=== PATIENT | male | born 1955 | race Caucasian/White ===

== ENCOUNTER → 2017-05-08 | Outpatient (CLI) | payer OTHER ==
[~2017-05-08] MED LIST: ACET-1047 PO; ADVIN50/60 INH; ASCO10003 PO; ASPI81TA28 PO; B-CO-25 PO; CHOL2000 PO; CLB200 PO; CLC100 PO; FLUT1AER5; GLUC1TAB94 PO; KRIL1000 PEG; LISI-725 PO; LVNIS30 SQ; METF-384 PO; METO25TA3 PO; MONT1TAB3 PO; MULT-506 PO; OXYSR10 PO; PANT40TA PO; PRAV20TA PO; RXC5 PO; SITA50TA3 PO; TAMS0.4C38 PO; ULT50X PO; VNTHFA/IN INH
--- NOTE | 2017-05-08 09:16 | DIAGNOSTIC IMAGING REPORT ---
LEG LENGTH STUDY (WHOLE LEG) CLINICAL HISTORY: 61 years-old Male presenting with RIGHT LEG PAIN. TECHNIQUE: Bilateral the use of the lower extremities were performed as part of a leg length discrepancy study. COMPARISON: None. FINDINGS: Superior right femoral head to medial condyle 47.2 cm. Right medial tibial plateau to ankle mortise 35.2 cm. Total right leg length 82.4 cm. Superior left femoral head to medial femoral condyle 47.9 cm. Left medial tibial plateau to ankle mortise 34.5 cm. Total left leg length 82.4 cm. No evidence of fracture or malalignment. Bilateral symmetric joint space loss in the medial compartments with mild osteophytosis both medially and laterally. Atherosclerosis. IMPRESSION: 1. No evidence of leg length discrepancy. 2. Bilateral degenerative changes at the knee joints, most severe in the medial compartments where there is joint space loss. Electronically signed by: Holger Perez M.D. 05/08/2017 9:15 AM Dictated Date/Time: 05/08/2017 9:12 AM
== END | disposition home or self-care (01) ==
LOC: C.RDSM 14:56
PROVIDERS: ATTEND Physician Assistant
DX: R52 Pain, unspecified (principal)

== ENCOUNTER 2017-06-06 04:59 | Inpatient (IN) | payer OTHER ==
[2017-05-08 10:45] VITALS: BMI 41.0
--- NOTE | 2017-05-08 11:37 | PAT Medication Instructions ---
Service Date May 08, 2017. Current Home Medication List Albuterol Hfa (Ventolin Hfa), 2-4 PUFFS INH QID PRN for Wheezing Ascorbic Acid (Vitamin C), 100 MG PO QAM Aspirin (Aspirin Ec), 81 MG PO QPM B-Complex W/ Folic Acid (Super B Complex Maxi), 1 TAB PO QAM Cholecalciferol (Vitamin D3), 1 CAP PO QAM Fluticasone Prop/Salmeterol (Advair Diskus 500/50 60 Dose), 1 PUFFS INH BID Fluticasone Propionate (Inhala (Flovent Diskus), 1 INHA NA HS Kzmsthzbrkz-Rhspynwcxtd-Nqncje ([employer] Health Ad), 1 TAB PO QAM Krill Oil (Krill Oil), 1 CAN PEG QAM Lisinopril (Zestril), 20 MG PO QPM Metformin Hcl (Glucophage), 1,000 MG PO BID Metoprolol Succinate (Toprol Xl), 1 TAB PO QAM Montelukast Sodium (Singulair), 1 TAB PO QPM Multivitamin (Multivitamin), 1 TAB PO QAM Pantoprazole (Protonix), 40 MG PO QAM Pravastatin (Pravachol ), 40 MG PO HS Sitagliptin (Januvia), 50 MG PO QAM Tamsulosin Hcl (Flomax), 1 CAP PO QPM Medication Instructions For Your Scheduled Surgery - Hold the following medications 2 weeks prior to surgery: Mthmxngqalb-Woyfixouvwe-Kfcebk (Wevebob Ad), 1 TAB PO QAM Krill Oil (Krill Oil), 1 CAN PEG QAM - Hold the following medications 48 hours prior to surgery: Metformin Hcl (Glucophage), 1,000 MG PO BID - Hold the following medications the morning of surgery: Sitagliptin (Januvia), 50 MG PO QAM Multivitamin (Multivitamin), 1 TAB PO QAM B-Complex W/ Folic Acid (Super B Complex Maxi), 1 TAB PO QAM Cholecalciferol (Vitamin D3), 1 CAP PO QAM Ascorbic Acid (Vitamin C), 100 MG PO QAM - Take the following medications the morning of surgery with a sip of water: Pantoprazole (Protonix), 40 MG PO QAM Metoprolol Succinate (Toprol Xl), 1 TAB PO QAM Fluticasone Prop/Salmeterol (Advair Diskus 500/50 60 Dose), 1 PUFFS INH BID Albuterol Hfa (Ventolin Hfa), 2-4 PUFFS INH QID PRN for Wheezing (bring with you to hospital morning of surger; if needed) - Hold the following medications as scheduled the night before surgery: Lisinopril (Zestril), 20 MG PO QPM - Take the following medications as scheduled the night before surgery: Tamsulosin Hcl (Flomax), 1 CAP PO QPM Pravastatin (Pravachol ), 40 MG PO HS Montelukast Sodium (Singulair), 1 TAB PO QPM Fluticasone Prop/Salmeterol (Advair Diskus 500/50 60 Dose), 1 PUFFS INH BID Fluticasone Propionate (Inhala (Flovent Diskus), 1 INHA NA HS Albuterol Hfa (Ventolin Hfa), 2-4 PUFFS INH QID PRN for Wheezing (if needed) Aspirin (Aspirin Ec), 81 MG PO QPM (okay to continue per surgeon) If you have any questions please call us at [phone] or [phone] or [phone]
--- NOTE | 2017-05-08 12:35 | DIAGNOSTIC IMAGING REPORT ---
CHEST 2 VIEWS ROUTINE HISTORY: Preop. COMPARISON: None. FINDINGS: The lungs are clear. Cardiac silhouette is normal in size. No pleural effusions. No pneumothorax. IMPRESSION: No acute process. Electronically signed by: Andrew Montiel M.D. 05/08/2017 12:34 PM Dictated Date/Time: 05/08/2017 12:30 PM
--- NOTE | 2017-05-08 12:38 | DIAGNOSTIC IMAGING REPORT ---
CERVICAL SPINE 2 OR 3 VIEWS CLINICAL HISTORY: PREOP, RHEUMATOID ARTHRITIS COMPARISON STUDY: None. FINDINGS: Lateral, flexion, and extension views of the cervical spine were performed. The cervical spine is visualized from C1 through the superior endplate of T1. There is straightening of the cervical spine. Alignment remains intact through both flexion and extension. No fractures. Prevertebral soft tissues and the C1-C2 interval are within normal limits. Mild to moderate disc space narrowing at C5-C6 and C6-C7 with endplate osteophytes. IMPRESSION: The alignment remains intact throughout flexion and extension. The C1-C2 interval is within normal limits. Electronically signed by: Andrew Montiel M.D. 05/08/2017 12:36 PM Dictated Date/Time: 05/08/2017 12:35 PM
[2017-05-08 12:39] LABS: BASO % 0.1 %; BASO ABS # 0.01 K/uL (0-0.2); COMPLETE YES; EOS % 3.9 %; HEMATOCRIT 39.7 % (42-52); IG% 0.4 %; LYMPH % 18.3 %; MEAN CELL VOLUME 89.2 fL (80-100); MEAN CORPUSCULAR HEMOGLOBIN 31.5 pg (25-34); MEAN CORPUSCULAR HGB CONC 35.3 g/dl (32-36); MEAN PLATELET VOLUME 10.5 fL (7.4-10.4); MONO % 5.5 %; NEUT % 71.8 %; PLATELET COUNT 224 K/uL (130-400); RED BLOOD COUNT 4.45 M/uL (4.7-6.1); WHITE BLOOD COUNT 7.11 K/uL (4.8-10.8)
[2017-05-08 12:49] LABS: BUN/CREATININE RATIO 9.8 (10-20); CALCIUM 9.2 mg/dl (8.5-10.1); CREATININE 0.89 mg/dl (0.60-1.40); POTASSIUM 4.3 mmol/L (3.5-5.1); PROTHROMBIN TIME (PATIENT) 10.2 SECONDS (9.0-12.0)
--- NOTE | 2017-05-30 11:46 | HISTORY & PHYSICAL EXAMINATION ---
DATE OF ADMISSION: 06/06/2017 ATTENDING PHYSICIAN: Dr. Holger Jasso. CHIEF COMPLAINT: Bilateral knee pain, right side greater than left times many years. HISTORY OF PRESENT ILLNESS: The patient is a pleasant 61-year-old male who has been treated in our office for bilateral knee pain. He states it has been ongoing for many years. He has progressively worsened over the last couple of months. His right knee is worse than his left knee. Most of his pain on the right knee is on the inside, part of the knee radiates down his leg. His pain is increased with activity and weightbearing. He has decreased activities of daily living due to pain in his right knee. He has pain with range of motion and limited motion due to pain. He has occasionally had effusions in his knee that needed to be aspirated. Aggravating activities include walking, going up and down steps. He states he is unable to be as active as he would like to be, he is unable to do things he likes to do like walk in the [place] or home. He has pain at rest. Prior treatments include nonsteroidal anti-inflammatory drugs, physical therapy, corticosteroid injections, viscous supplementation and joint aspirations. Due to his progressively worsening symptoms and the inability to do things that he would like to do he has elected to proceed with a right total knee arthroplasty. PAST MEDICAL HISTORY: 1. Gastroesophageal reflux disease. 2. Hyperlipidemia. 3. Type 2 diabetes mellitus. 4. Hypertension. 5. Obesity. 6. Osteoarthritis. 7. Coronary atherosclerosis. 8. Sleep apnea with use of a CPAP machine. 9. History of prostate cancer. CURRENT MEDICATIONS: 1. Albuterol 2 puffs inhaled q.i.d. as needed for wheezing. 2. Aspirin 81 mg daily. 3. Vitamin D3 2000 international units daily. 4. Advair Diskus 500 mcg per 50 mcg 1 puff p.o. b.i.d. daily. 5. Fluticasone 50 mcg per inhaled nasal spray 1 spray each nostril daily. 6. Zestril 20 mg 1 tab p.o. daily. 7. Metformin 1000 mg 1 tab p.o. b.i.d. 8. Metoprolol 25 mg 1 tab p.o. daily. 9. Singulair 10 mg 1 tab p.o. q.p.m. 10. Multivitamin daily. 11. Super B complex multivitamin daily. 12. Krill oil 500 mg p.o. daily. 13. Pantoprazole 40 mg 1 tab p.o. daily. 14. Pravachol 40 mg 1 tab p.o. at bedtime. 15. Januvia 50 mg 1 tab p.o. daily. 16. Tamsulosin 0.4 mg p.o. daily. 17. Vitamin C 1000 mg daily. 18. Move Free joint supplementation daily. ALLERGIES: HE IS ALLERGIC TO LIPITOR, AND CRESTOR WHICH BOTH CAUSE LEG CRAMPS. FAMILY HISTORY: His brother and father have a history of cancer. His mother has history of heart disease as well as type 2 diabetes. SOCIAL HISTORY: He denies any tobacco use, states that he did smoke, quit at age 28. He states he does drink 2 alcoholic drinks per night. Denies any diarrhea or drug use. Does not walk with any type of assistive device. Lives with his who is a nurse. He is retired from the [employer]. REVIEW OF SYSTEMS: Denies any history of blood transfusions, skin conditions, blood clots, embolisms or phlebitis. Denies any bleeding or clotting disorders. Denies any headaches, migraines, seizures, syncopal episodes, lightheadedness or dizziness. Denies any blurry vision or hearing loss. Denies any chest pain, heart palpitations. Denies any shortness of breath recently but other than his normal shortness of breath and allergy and asthmatic symptoms. Denies any history of nausea, vomiting. No ulcers. Occasionally, gets some heartburn, although the pantoprazole that he takes keeps that under control. Denies any diarrhea, constipation, abdominal pain. Denies any issues with retention or prostatitis. He has an elevated PSA. Denies any foul smelling urine or frequency with urination. PHYSICAL EXAMINATION: GENERAL: He is alert and oriented x3. His appearance is well-dressed, well-nourished. Does not use any assistive device for ambulation. He does ambulate with an antalgic gait. VITAL SIGNS: Height is 5 feet 8 inches, weight is 258 pounds, and BMI is 39.2. HEAD, EYES, EARS, NOSE, AND THROAT: Head is atraumatic, normocephalic. EARS: Hearing is grossly normal. TMs are clear with normal light reflex. Nontender to palpation. EYES: Extraocular movements intact. Pupils are round and reactive to light. Sclerae are normal. NOSE: Nares are patent bilaterally. Normal turbinates. No drainage. THROAT: Oropharynx is clear. Mucous membranes are moist. Good dentition. Uvula midline. NECK: Supple, no lymphadenopathy, full range of motion, no carotid bruits appreciated. LUNGS: Clear to auscultation bilaterally. No adventitious sounds. No accessory muscle use. HEART: Regular rate and rhythm, normal S1, S2. No murmurs, rubs or gallops appreciated. ABDOMEN: Obese, soft, nontender, nondistended. Bowel sounds heard in all 4 quadrants. Exam of bilateral lower extremities, he does not have any distal edema in either extremity. His peripheral pulses are 2+ and equal bilaterally. Does have a positive effusion in his right knee. Range of motion is 0/5/115. Strength is 5/5. He has medial joint line tenderness of his right knee with palpation. He does have a varus alignment. His ligamentous exam is normal and intact. His range of motion on the left is 0/5/115. RADIOLOGY IMAGES: X-rays of his right knee show tricompartmental osteoarthritis of the right knee with osteophyte formation as well as subchondral sclerosis. LABORATORY DATA: He had labs done on 03/29/2017, white blood cell was 7.19, hemoglobin 14.2, hematocrit 40.7, platelet count 242. BUN 12.0, creatinine 0.87, hemoglobin A1c was 6.6. EKG done on 01/20/2017 showed normal sinus rhythm with a rate of 64. Chest x-ray from 05/08/2017 shows no acute process. Lungs are clear. Cardiac silhouette is normal in size. No pleural effusions. No pneumothorax. IMPRESSION: End-Stage degenerative joint disease, right knee PLAN: The patient will be admitted on 06/06/2017 to the [facility] to undergo an elective right total knee arthroplasty with Dr. Jasso. Risks of surgery were explained to the patient and include but are not limited to infection, pain, bleeding, scarring, nerve and blood vessel damage, wound problems, weakness, stiffness, incomplete relief of symptoms, hardware failure, loosening, wear, fracture, blood clots, embolisms, heart attack, stroke and . All questions were answered, informed consent was obtained by Dr. Jasso. Post operative course discussed , he will be admitted for 2-3 days after surgery. We will use Lovenox postoperatively 30 mg b.i.d. x4 weeks for DVT prophylaxis. He will have presurgical clearance by his family physician, Dr. Satya Daniel. He will be managed medically postoperatively by the hospitalist service for postop medical management. His discharge plans are home with home health. He is also scheduled for outpatient physical therapy closer to home. He has also had clearance from his urologist to proceed with the total knee replacement. He is scheduled for repeat PSA the end of June and no plans for radiation will be made until that PSA is completed. All questions were answered today. He knows to call with any further problems or questions. DEON
[~2017-06-06] VITALS: Ht 172.7 cm; Wt 124.2 kg
[2017-06-06] VITALS (9 sets, daily range): BP systolic 118–179; BP diastolic 66–93; PULSE 64–91; TEMP 36.6–37.1; O2SAT 93–99; Ht 172.7 cm; Wt 124.2 kg
[~2017-06-06 04:59] MED LIST changes: -ACET-1047 PO; -CLB200 PO; -CLC100 PO; -LVNIS30 SQ; -OXYSR10 PO; -RXC5 PO; -ULT50X PO
[2017-06-06] MEDS ORDERED: TRAMADOL HCL 50 MG TAB PO SCH (06:00)
[2017-06-06] MEDS ORDERED: CEFAZOLIN 3000 MG/65 ML D5W 65 ML IV SCH (06:00)
[2017-06-06] MEDS ORDERED: LACTATED RINGER'S 1000ML IV SCH (06:00)
[2017-06-06] MEDS ORDERED: GABAPENTIN 300 MG CAP PO SCH (06:00)
[2017-06-06] MEDS ORDERED: OXYCODONE HCL 10 MG TABCR (OXYCONTIN) PO SCH (06:00)
[2017-06-06] MEDS ORDERED: LACTATED RINGER'S 1000ML 1,000 ML IV SCH ×2 (06:00)
[2017-06-06] MEDS ORDERED: FAMOTIDINE 20 MG TAB PO SCH (06:00)
[2017-06-06] MEDS ORDERED: CLONIDINE HCL 0.1 MG/24 HR TRANSDERM SYS TD SCH (06:00)
[2017-06-06] MEDS ORDERED: CeleBREX 200 MG CAP PO SCH (06:00)
[2017-06-06] MEDS ORDERED: ROPIVACAINE 5MG/ML 30 ML 150 MG, BUPIVACAINE/EPINEPHR 0.5% MPF 30 ML, KETOROLAC TROMETH... INFIL SCH ×13 (06:00)
[2017-06-06] MEDS ORDERED: ACETAMINOPHEN 500 MG TAB PO SCH (06:00)
[2017-06-06] MEDS ORDERED: METOCLOPRAMIDE HCL 10 MG TAB PO SCH (06:00)
[2017-06-06] MEDS: TRANEXAMIC ACID INJ 1,000 MG in SODIUM CHLORIDE 0.9% 100ML 100 ML IV SCH ×2 (06:11→10:40)
[2017-06-06] MEDS ORDERED: FENTANYL CITRATE INJ 50 MCG/1 ML 2 ML VIAL IV PRN (06:15)
[2017-06-06] MEDS ORDERED: EpHEDrine SULFATE INJ 50 MG/ML AMP IV PRN (06:15)
[2017-06-06] MEDS ORDERED: ATROPINE SULFATE 0.1 MG/ML 5ML SYR IV PRN (06:15)
[2017-06-06] MEDS ORDERED: HYDROmorphone INJ 1 MG/ML SYR IV PRN (06:15)
[2017-06-06] MEDS ORDERED: ONDANSETRON INJ 2 MG/ML 2 ML VIAL IV PRN ×2 (06:15→10:00)
[2017-06-06] MEDS ORDERED: BUPIVACAINE 0.5 % 5 MG/1 ML PF 10ML VIAL ONE (06:27)
[2017-06-06] MEDS ORDERED: BUPIVACAINE 0.25% 30 ML VIAL ONE (06:27)
[2017-06-06] MEDS ORDERED: PROPOFOL IV EMULSION 10 MG/ML 20 ML VIAL IV ONE (06:35)
[2017-06-06] MEDS ORDERED: MIDAZOLAM HCL 1 MG/ML 2ML VIAL ONE (06:35)
[2017-06-06] MEDS ORDERED: FENTANYL CITRATE INJ 50 MCG/1 ML 2 ML VIAL ONE ×2 (06:35→08:56)
--- NOTE | 2017-06-06 06:42 | History & Physical Bridge Note ---
H&P Re-Evaluation Bridge Note: I have examined the patient, reviewed the History & Physical and in the interval since the performance of the History & Physical I have noted the following changes of clinical significance: No changes noted
[2017-06-06] MEDS ORDERED: BACITRACIN 50000 UNIT VIAL ONE (06:43)
[2017-06-06] MEDS ORDERED: SODIUM CHLORIDE 0.9% PF 50 ML VIAL ONE (06:43)
[2017-06-06] MEDS ORDERED: BUPIVACAINE LIPOSOME 1/3% 266 MG/20 ML VIAL INFIL ONE (06:43)
[2017-06-06] MEDS ORDERED: ORTHO JOINT ANESTHETIC ONE (06:43)
[2017-06-06] MEDS ORDERED: ONDANSETRON INJ 2 MG/ML 2 ML VIAL ONE (09:27)
[2017-06-06] MEDS ORDERED: POVIDONE-IODINE OP SOLN 30 ML BTL TOP ONE (09:37)
[2017-06-06] MEDS ORDERED: ACETAMINOPHEN 325 MG TAB PO PRN (10:00)
[2017-06-06] MEDS ORDERED: ALBUTEROL HFA 8 GM INHALER INH PRN (10:00)
[2017-06-06] MEDS ORDERED: METOCLOPRAMIDE HCL INJ 5 MG/ML 2 ML VIAL IV PRN (10:00)
[2017-06-06] MEDS ORDERED: BISACODYL 10 MG SUPP PR PRN (10:00)
[2017-06-06] MEDS ORDERED: DiphenhydrAMINE HCL 50 MG/ML VIAL IV PRN (10:00)
[2017-06-06] MEDS ORDERED: MAGNESIUM HYDROXIDE SUSP 30 ML UDC PO PRN (10:00)
[2017-06-06] MEDS ORDERED: SOD PHOSPHATE/SOD BIPHOSPHATE ENEMA 132 ML BTL PR PRN (10:00)
[2017-06-06] MEDS ORDERED: KETOROLAC TROMETHAMINE 30 MG/ML VIAL IV. PRN (10:00)
[2017-06-06] MEDS ORDERED: MoRPHine SULFATE 2 MG/ML CARP IV PRN (10:00)
--- NOTE | 2017-06-06 10:03 | [facility] Operative Report ---
Operative Report Operative Date Jun 06, 2017. Pre-Operative Diagnosis Right Knee, Degenerative Joint Disease Post-Operative Diagnosis Same as preoperative Procedure(s) Performed Right Total Knee Arthroplasty Surgeon Dr. Holger Jasso Director Oracle Database Surgeon(s) Michelle Boyd PA-C Estimated Blood Loss 25ML Findings Medial compartment osteoarthritis Specimens A.) Right Knee Bone and Tissue Drains none Anesthesia spinal with peripheral nerve block and intravenous sedation Complication(s) None Disposition Recovery Room / PACU Indications Patient's a 61-year-old male with bilateral severe medial compartment osteoarthritis. His pain has been refractory to nonsurgical methods of management. He has diabetes which is well managed. He also has prostate cancer in addition to other medical problems. He is a moderately overweight. After discussion of treatment options risks and benefits elected to proceed with operative intervention. Description of Procedure Consent was obtained. The patient identified as Manda. He identified the operative site as the right knee. I marked with my initials. Preoperative surgical timeout was performed. Appropriate dose of IV antibiotics was given. He was taken to the operating room and positioned supine on the operating room table. Diaz was inserted. A bump was placed under the right hip and right calf. A tourniquet was applied to the right thigh and the limb was prepped and draped in the usual sterile fashion. Exam under anesthesia revealed range of motion 0/5/120. He had 1+ MCL laxity with varus alignment there was a positive effusion in the knee. EVT prophylaxis intraoperatively with foot pumps postoperatively with Lovenox. The limb was exsanguinated with the Esmarch tourniquet inflated to 50 mmHg. A midline incision was made about 20 cm in length. A medial parapatellar arthrotomy was performed. There were grade 2 changes diffusely about the patella with osteophytes which were removed. Soft tissue around the patella was debrided. The retropatellar fat pad and cruciate ligaments were excised. An extensile medial release was performed along didn't back to the level of the semimembranosus tendon which was also released. The medial meniscus was deficient there were grade 4 changes throughout the medial compartment were bone spurs throughout all compartments of the knee but the trochlea and lateral compartment and lateral meniscus were nearly normal in appearance. There were no loose bodies. The synovial reflection in the lateral gutter was released. Soft tissue on the anterior aspect of the distal femur was also removed. The knee was subluxated and a airplane pilot commercial hole was drilled just in front of the lateral tibial spine. I could not advance the intramedullary lara completely down the tibia but guided I believed was through the majority of the diaphysis. The alignment guide was affixed to the lara and set to take 10 off the high side corresponding to off of the low side. The guide was pinned in place. The extra medullary alignment lara was utilized and found to have appropriate slope. The varus valgus orientation was bisecting the ankle joint and in line with the second ray. The patellar tendon and soft tissues were protected and the cut was made. The tibia was sized to a 4. Attention was turned to the femur airplane pilot commercial hole was drilled and distal femur followed by insertion of the intramedullary lara and the alignment guide set at 6 valgus right knee 13 mm resection. This was pinned in place and verified and the cut was then made. The extension gap was a symmetric but tight 10 mm. Whitesides line and the transverse epicondylar axis were marked out and the sizing block was applied and sized to a 4. The appropriate external rotation drill holes were made which nearly matched the epicondylar axis. The size 4 anterior cutting block was applied and collateral ligaments were protected. The cuts were made. These were noted but extraneous osteophytes in the back of the knee were removed with osteotome and curette. The flexion gap was symmetric 10. Box cutting guide was applied and lateralized and cut. The femoral trial was applied. The tibia was prepared by aligning the jig drilling and punching the keel. A 10 mm spacer was inserted. An Medial bone was marked and resected. The component was shifted laterally. The knee had full extension and was stable in full extension. There is trace MCL laxity and mid position 1+ LCL laxity and the knee was stable in 90 of flexion. Attention was turned the patella which measured 25 mm in thickness. A 38 mm size was selected and the guide was set to preserve 16 mm. The patellar guide was utilized and the cut was made. A 38 patella palpable was utilized oriented and the lug holes were drilled. The patella tracked fine with the no hands technique. The residual patellar thickness was 15. Positive patellar thickness at the end of the case was 24 mm. The patella was distal eyes and medialized. After confirming tracking and stability the components removed the plugs were placed in the canal the joint mix was injected into the back of the knee taken care to protect the neurovascular structures. Pulse lavage was performed on all bony surfaces and soft tissue. The components were then cemented in place using 2 bags of simplex P cement mixed using third-generation cement technique applied well in a doughy state. Smear was applied on the posterior condyles of the femur. Components cemented in place femur tibia and patella and held in full extension with a patellar clamp the cemented hardened. Tourniquet was let and then let down after 95 minutes of inflation there is no significant bleeding. Extraneous cement was removed. The back of the knee was inspected for cement. Cement in the back the knee was thoroughly removed. Wound was again performed and a 10 mm insert was appropriate. Betadine lavage was performed. The remainder of the orthotic joint mix was injected throughout the joint capsule skin and subcutaneous tissues. The circumference of the tibial tray was inspected for cement. There is no significant bleeding noted. Irrigation with pulse lavage and the Betadine lavage was performed. The final component was inserted with full extension showing no varus or valgus laxity. The knee was not in flexion. [place] assisted flexion with the extensor mechanism closed with 120. Liftoff pullout was negative. There is 1 + LCL laxity and the position and trace MCL laxity in mid position. There is no laxity to varus or valgus stress at 90 flexion. The extensor mechanism was closed with interrupted #2 FiberWire above the equator of the patella and running and interrupted #1 Vicryl below. The skin was closed in layers with 0 and 2-0 Vicryl along with cristina and a Silverlon dressing. The leg was cleaned with wet and dry sponges a soft sterile dressing was applied along the full length João wrap. Patient would from anesthesia without difficulty taken recovery room in stable condition. Resected bone was sent for specimen. There were no complications. Counts are correct in the case. Blood loss was approximately 25 mL. The patient received his second dose of trans-and examined casted at the conclusion of the operation. He was taken recovery room in stable condition. At the conclusion operation I spoke to the patient's family and informed them of my findings. The components inserted were the [employer] PFC Sigma rotating platform total knee size 4 femur and tibia. Size 38 3 peg oval dome patella and a size 4 rotating platform 10 mm thick polyethylene insert I attest to the content of the Intraoperative Record and any orders documented therein. Any exceptions are noted below.
--- NOTE | 2017-06-06 10:08 | Anesthesiology Progress Note ---
Anesthesia Post Op Note Date & Time Jun 06, 2017 at 10:08 Vital Signs Pain Intensity: 8 Vital Signs Past 12 Hours Date Time Temp Pulse Resp B/P (MAP) Pulse Ox O2 Delivery O2 Flow Rate FiO2 06/06/17 05:32 36.7 72 20 178/66 96 Room Air Notes Mental Status: alert / awake / arousable, participated in evaluation Pt Amnestic to Procedure: Yes Nausea / Vomiting: adequately controlled Pain: adequately controlled Airway Patency, RR, SpO2: stable & adequate BP & HR: stable & adequate Hydration State: stable & adequate Neuraxial Anesthesia: was administered, sensory block is resolving Anesthetic Complications: no major complications apparent Doing well. Awake, pain controlled, moving bilateral lower extremities.
--- NOTE | 2017-06-06 10:10 | [facility] Operative Report ---
Operative Report Operative Date Jun 06, 2017. Pre-Operative Diagnosis Right Knee, Degenerative Joint Disease Post-Operative Diagnosis Same as preoperative Procedure(s) Performed Right Total Knee Arthroplasty Surgeon Dr. Holger Jasso Flat Optical Element Maker Surgeon(s) Michelle Boyd PA-C Estimated Blood Loss 25ML Findings DJD right knee Specimens A.) Right Knee Bone and Tissue Drains none Anesthesia spinal with peripheral nerve block and intravenous sedation Complication(s) None Disposition Recovery Room / PACU (stable) Indications Patient is a 61-year-old male who presented to our office with complaints of right knee pain. An ongoing for many months and has progressively worsened. It now affects him on a daily basis with activities of daily living and normal activities. He has failed conservative treatment which has consisted of wearing a brace, corticosteroid injections, viscous supplementation, rest, ice and anti-inflammatories. Due to his worsening symptoms and failure of conservative treatment, surgical intervention was recommended. Risks and complications of surgery were discussed with the patient. Agreed to proceed. Informed consent was obtained. Description of Procedure Patient was taken to the operating room and placed under spinal anesthesia. He was given a peripheral nerve block. He was given 3 g of IV Ancef for surgical prophylaxis. Timeout performed. He was prepped and draped in routine sterile fashion. I was present during the entire case, please see Dr. Jasso's operative report for further detail. Patient was awakened and transferred to the recovery room in stable condition. I attest to the content of the Intraoperative Record and any orders documented therein. Any exceptions are noted below.
--- NOTE | 2017-06-06 10:29 | DIAGNOSTIC IMAGING REPORT ---
RIGHT KNEE 1 OR 2 VIEWS ROUTINE HISTORY: 61 years-old Male right knee arthroplasty. COMPARISON: Right knee radiographs 08/11/2016 TECHNIQUE: Portable AP and lateral views of the right knee FINDINGS: There is been recent right total knee arthroplasty with patellar resurfacing. Midline skin cristina are seen anteriorly. Expected postsurgical soft tissue swelling and deep tissue air is noted. No malalignment or periprosthetic fracture. IMPRESSION: Status post right total knee arthroplasty and patellar resurfacing without complication identified. The above report was generated using voice recognition software. It may contain grammatical, syntax or spelling errors. Electronically signed by: Fortunato Reddy M.D. 06/06/2017 10:27 AM Dictated Date/Time: 06/06/2017 10:26 AM
[2017-06-06] MEDS ORDERED: PHARMACY GLYCEMIC MGMT CONSULT PRN (11:15)
[2017-06-06] MEDS ORDERED: GLUCOSE 40% GEL 15 GM TUBE PO PRN (11:45)
[2017-06-06] MEDS ORDERED: GLUCAGON FOR INJ 1 MG VIAL SQ PRN (11:45)
[2017-06-06] MEDS ORDERED: DEXTROSE 50% 50 ML SYR IV PRN (11:45)
[2017-06-06] MEDS ORDERED: GLUCOSE 10 TABS/TUBE PO PRN (11:45)
[2017-06-06] MEDS: SODIUM CHLORIDE 0.9% 1000ML 1,000 ML IV SCH ×2 (12:16→21:16)
[2017-06-06] MEDS: OXYCODONE HCL IR 5 MG TAB (IMMEDIATE RELEASE) PO PRN ×2 (13:04→17:48)
[2017-06-06] MEDS: INSULIN ASPART 100 UNITS/ML 3 ML PEN SC SCH ×3 (13:08→21:16)
--- NOTE | 2017-06-06 13:41 | Pharmacy Progress Note ---
Glycemic Control Intl Consult Date of Service Jun 06, 2017. Scope Glycemic Pharmacist consulted by MYRNA Harris on 06/06/17 for glycemic control and to write orders per [facility] inpatient glycemic control protocol. Of note, medicine has also been consulted but I have spoken with Dr. Marin and he is aware we are managing. Objective Weight (Kilograms): 124.200 Accuchecks BSG (last 24hrs): Test 06/06/17 05:30 06/06/17 10:03 06/06/17 12:01 Bedside Glucose 189 mg/dl (70-99) 210 mg/dl (70-99) 164 mg/dl (70-99) Recent Pertinent Medications Outpatient Anti-diabetic Regimen: * Januvia 50 mg daily * Metformin 1 gm BID * A1c = 6.6 % 03/29/17 (as per H&P) Risk Factors for Insulin Resistance: * Recent Surgery: POD #0 s/p R TKA * Diet: type 2 diabetes diet ordered postop Assessment & Plan ASSESSMENT: * 61 y/o male admitted for R TKA today. History of type 2 diabetes, managed on two orals as an outpatient and well controlled as per most recent A1c * Pt is maintained on oral antidiabetic agents as an outpatient * Oral agents are not recommended for inpatient use d/t drug interactions, changing PO intake, and difficulty titrating for acute hyper/hypoglycemia. ADA recommends re-initiating outpatient oral agents 1-2 days prior to discharge if/ when appropriate if they were held on admission. * Will hold oral agents for admission and utilize SQ basal bolus insulin regimen which is the recommended regimen for inpatient glycemic control. * Will initiate weight based insulin dosing for insulin lelo patient and titrate based on BSG trends. * ADA & AACE recommend a goal blood sugar range 140-180 mg/dl for the majority of critically ill & non-critically ill patients. However, more stringent targets may be selected in individual cases. PLAN FOR INPATIENT GLYCEMIC CONTROL: * Holding outpatient oral diabetes medications, can plan to resume in next day or two as long as patient meets criteria * Basal insulin with LANTUS 20 units x 1 this evening if BSG remains above 140 mg/dL (~0.15 units/kg). Further basal dosing will be dependent on BSGs. * Correctional Insulin with NOVOLOG per scale ACHS or Q6hrs while NPO * Goal Range: Low 110 mg/dL - High 140 mg/dL * Correction Factor: 25 mg/dL/unit * Nutritional / Prandial insulin per carb ratio of 1 unit per 8 grams CHO consumed DISCHARGE RECOMMENDATIONS: * A1c acceptable * Resume Januvia and metformin on discharge Thank you.
--- NOTE | 2017-06-06 13:51 | Medical Consult ---
Consultation Date of Consultation: Jun 06, 2017. Attending Physician: Holger Jasso M.D. Reason for Consultation: Medical Management History of Present Illness Mr. Hillman is a 61 y/o male with PMHx of T2DM, CAD, JOYCE on night CPAP, HTN, HLD, Asthma, GERD, and Prostate CA who is S/P R TKA by Dr. Jasso on 06/06. Currently pain is well-controlled with current management. He is maintained on Metformin and Januvia for diabetes management. He reports good control of asthma symptoms with rare exacerbations. He denies H/O DVT/PE. H/O single vessel coronary disease that is being medically managed and monitored. He denies any further cardiac history including NC or CHF. Past Medical/Surgical History 1. T2DM 2. CAD 3. JOYCE on CPAP 4. GERD 5. HLD 6. HTN 7. Prostate CA Family History Diabetes mellitus Hypertension Social History Smoking Status: Former Smoker Smokeless Tobacco Use: No Alcohol Use: socially Drug Use: none Marital Status: Housing Status: lives with significant other Occupation Status: employed Allergies Coded Allergies: Atorvastatin (Verified Adverse Reaction, Unknown, leg cramps, 05/08/17) Rosuvastatin (Verified Adverse Reaction, Unknown, leg cramps, 06/06/17) Current Inpatient Medications Current Inpatient Medications Medications (Trade) Dose Ordered Sig/Julita Route Start Time Stop Time Status Last Admin Dose Admin Lactated Ringer's 1,000 ml @ 60 mls/hr [id number] IV 06/06/17 06:00 06/06/17 22:39 Cefazolin Sodium 65 ml @ 100 mls/hr PREOP IV 06/06/17 06:00 06/06/17 18:00 06/06/17 07:05 100 MLS/HR Acetaminophen (Tylenol Tab) 1,000 mg PREOP PO 06/06/17 06:00 06/06/17 18:00 06/06/17 06:11 1,000 MG Celecoxib (CeleBREX CAP) 200 mg PREOP PO 06/06/17 06:00 06/06/17 18:00 06/06/17 06:11 200 MG Famotidine (Pepcid Tab) 20 mg PREOP PO 06/06/17 06:00 06/06/17 18:00 06/06/17 06:10 20 MG Gabapentin (Neurontin Cap) 600 mg PREOP PO 06/06/17 06:00 06/06/17 18:00 06/06/17 06:10 600 MG Metoclopramide HCl (Reglan Tab) 10 mg PREOP PO 06/06/17 06:00 06/06/17 18:00 06/06/17 06:10 10 MG Oxycodone HCl (Oxycontin Tab) 10 mg PREOP PO 06/06/17 06:00 06/06/17 18:00 06/06/17 06:11 10 MG Clonidine HCl ([id number] 0.1mg/24hr Patch) 1 patch PREOP TD 06/06/17 06:00 06/06/17 18:00 06/06/17 06:09 1 PATCH Miscellaneous (Remove Clonidine Patch) 1 ea Q72H N/A 06/08/17 06:00 06/08/17 06:01 Tranexamic Acid 1000 mg/Sodium Chloride 110 ml @ 660 mls/hr TODAY@06,0630 IV 06/06/17 06:00 06/06/17 18:00 06/06/17 06:11 660 MLS/HR Tramadol HCl (Ultram Tab) 50 mg PREOP PO 06/06/17 06:00 06/06/17 18:00 06/06/17 06:10 50 MG Lactated Ringer's 1,000 ml @ 15 mls/hr Q24H IV 06/06/17 06:00 06/07/17 05:59 06/06/17 06:09 15 MLS/HR Sodium Chloride 1,000 ml @ 100 mls/hr Q10H IV 06/06/17 12:00 06/07/17 11:59 06/06/17 12:16 100 MLS/HR Cefazolin Sodium 3000 mg/Dextrose 65 ml @ 100 mls/hr Q8H IV 06/06/17 16:00 06/07/17 00:38 Celecoxib (CeleBREX CAP) 200 mg BID PO 06/07/17 10:00 07/07/17 09:59 Oxycodone HCl (Roxicodone Immediate Rel Tab) 1 TABLET FOR PAIN RATING... Q4H PRN PO 06/06/17 10:00 06/20/17 09:59 06/06/17 13:04 10 MG Morphine Sulfate (MoRPHine SULFATE INJ) 2 mg Q2H PRN IV 06/06/17 10:00 06/20/17 09:59 Acetaminophen (Tylenol Tab) 650 mg Q6H PRN PO 06/06/17 10:00 07/06/17 09:59 Magnesium Hydroxide (Milk Of Magnesia Susp) 30 ml Q6H PRN PO 06/06/17 10:00 07/06/17 09:59 Bisacodyl (Dulcolax Supp) 10 mg DAILY PRN WA 06/06/17 10:00 07/06/17 09:59 Sodium Biphosphate/ Sodium Phosphate (Fleet Enema) 132 ml DAILY PRN WA 06/06/17 10:00 07/06/17 09:59 Docusate Sodium (coLACE CAP) 100 mg BID PO 06/06/17 21:00 07/06/17 20:59 Diphenhydramine HCl (Benadryl Inj) 25 mg Q8H PRN IV 06/06/17 10:00 07/06/17 09:59 Ondansetron HCl (Zofran Inj) 4 mg Q6H PRN IV 06/06/17 10:00 07/06/17 09:59 Metoclopramide HCl (Reglan Inj) 10 mg Q6H PRN IV 06/06/17 10:00 07/06/17 09:59 Pantoprazole Sodium (Protonix Tab) 40 mg QAM PO 06/07/17 09:00 07/07/17 08:59 Tramadol HCl (Ultram Tab) 1 tablet for pain rating... Q4H PRN PO 06/06/17 10:00 07/06/17 09:59 Ketorolac Tromethamine (Toradol Inj) 30 mg Q6H PRN IV. 06/06/17 10:00 06/07/17 09:59 Enoxaparin Sodium (Lovenox Inj) 30 mg Q12H SQ 06/06/17 22:00 07/04/17 21:59 Miscellaneous Information (Consult Glycemic Management Pharmacy) 1 ea UD PRN N/A 06/06/17 11:15 07/06/17 11:14 Albuterol (Ventolin Hfa Inhaler) 2 puffs QID PRN INH 06/06/17 10:00 07/06/17 09:59 Aspirin (Ecotrin Tab) 81 mg QPM PO 06/06/17 21:00 07/06/17 20:59 Salmeterol Xinafoate/ Fluticasone (Advair Diskus 500/50 Inh) 1 puff BID INH 06/06/17 21:00 07/06/17 20:59 Lisinopril (Zestril Tab) 20 mg QPM PO 06/06/17 21:00 07/06/17 20:59 Metoprolol Succinate (Toprol Xl Tab) 25 mg QAM PO 06/07/17 09:00 07/07/17 08:59 Montelukast Sodium (Singulair Tab) 10 mg QPM PO 06/06/17 21:00 07/06/17 20:59 Multivitamins (Multivitamin Tab) 1 tab QAM PO 06/07/17 09:00 07/07/17 08:59 Pravastatin Sodium (Pravachol Tab) 40 mg HS PO 06/06/17 21:00 07/06/17 20:59 Tamsulosin HCl (Flomax Cap) 0.4 mg QPM PO 06/06/17 21:00 07/06/17 20:59 Ascorbic Acid (Vitamin C Tab) 1,000 mg QAM PO 06/07/17 09:00 07/07/17 08:59 Vitamin B Complex (Vitamin B Complex) 1 tab QAM PO 06/07/17 09:00 07/07/17 08:59 Cholecalciferol (Vitamin D Tab) 2,000 inter.unit QAM PO 06/07/17 09:00 07/07/17 08:59 Miscellaneous Information (Order Awaiting Action) 1 ea QS N/A 06/06/17 16:00 07/06/17 15:59 Morphine Sulfate (MoRPHine SULFATE INJ) 4 mg Q2H PRN IV 06/06/17 11:30 06/20/17 11:29 Insulin Aspart (novoLOG ASPART) SLIDING SCALE ACHS SC 06/06/17 12:00 07/06/17 11:59 06/06/17 13:08 4 UNITS Glucose (Glucose 40% Gel) 15-30 GRAMS 15 GRAMS... UD PRN PO 06/06/17 11:45 07/06/17 11:44 Glucose (Glucose Chew Tab) 4-8 Tablets 4 Tabl... UD PRN PO 06/06/17 11:45 07/06/17 11:44 Dextrose (Dextrose 50% 50ML Syringe) 25-50ML OF 50% DW IV FOR... UD PRN IV 06/06/17 11:45 07/06/17 11:44 Glucagon (Glucagon Inj) 1 mg UD PRN SQ 06/06/17 11:45 07/06/17 11:44 Review of Systems Constitutional: No fever, No chills, No weakness, No fatigue Eyes: No worsening of vision ENT: No nasal symptoms, No sore throat, No trouble swallowing Respiratory: No cough, No sputum, No wheezing, No shortness of breath Cardiovascular: No chest pain Abdomen: No pain, No nausea, No vomiting, No diarrhea, No constipation Genitourinary - Male: No dysuria Hematologic / Lymphatic: No abnormal bleeding/bruising, No clotting problems Physical Exam Date Time Temp Pulse Resp B/P (MAP) Pulse Ox O2 Delivery O2 Flow Rate FiO2 06/06/17 12:51 76 18 126/74 (91) 06/06/17 11:42 36.6 64 19 118/73 (88) 99 Nasal Cannula 2.0 06/06/17 11:18 64 18 130/82 (98) 06/06/17 10:45 37.0 76 18 119/69 (86) 97 Nasal Cannula 2.0 06/06/17 10:45 97 Nasal Cannula 2.0 06/06/17 10:45 Nasal Cannula 2.0 06/06/17 10:30 68 16 158/70 97 Nasal Cannula 2 06/06/17 10:15 37.1 64 16 153/80 97 Nasal Cannula 2 06/06/17 10:05 71 23 142/96 97 Nasal Cannula 2 06/06/17 09:57 37.0 74 13 149/75 98 Nasal Cannula 2 06/06/17 05:32 36.7 72 20 178/66 96 Room Air General Appearance: WD/WN, no apparent distress, + obese Head: normocephalic, atraumatic Eyes: sclerae normal ENT: hearing grossly normal Neck: supple, no JVD, trachea midline Respiratory/Chest: lungs clear, normal breath sounds, no respiratory distress, no accessory muscle use Cardiovascular: regular rate, rhythm, no gallop, no murmur Abdomen/GI: normal bowel sounds, non tender, soft Extremities/Musculoskelatal: normal capillary refill, + pertinent finding (RLE with JOÃO wrap C/D/I; motor function intact with toe movements) Neurologic/Psych: alert, oriented x 3 Skin: normal color, warm/dry Laboratory Results Last 24 Hours Test 06/06/17 05:30 06/06/17 10:03 06/06/17 12:01 Bedside Glucose 189 mg/dl 210 mg/dl 164 mg/dl Assessment & Plan Mr. Hillman is a 61 y/o male with PMHx of T2DM, CAD, JOYCE on night CPAP, HTN, HLD, Asthma, GERD, and Prostate CA who is S/P R TKA by Dr. Jasso on 06/06. S/P R TKA on 06/06: - Pain management, IVF, PT/OT, DVT prophylaxis per primary - DVT prophylaxis - Lovenox T2DM: A1c 6.6 (March 2017) - Hold Metformin and Januvia tonight and cover with SSI - If kidney function adequate on tomorrows labs home medications can be reinstituted CAD: Single Vessel Disease - ASA 81 mg daily and Pravachol 40 mg daily HTN: - Lisinopril 20 mg daily and Metoprolol Succ 25 mg daily Asthma: Without Exacerbation - Albuterol PRN, Advair BID, and Singulair 10 mg daily JOYCE: - May use own CPAP machine Thank you for the consultation. Hospitalist service will continue to follow. Attending Addendum: I have physically seen and examined this patient, have directed the physician assistants medical activities, and agree with the H&P as noted above with the following exceptions as noted. The patient is awake, alert and oriented 3, normocephalic and atraumatic, lying in bed , in no acute distress, has no complaints postoperatively, and reports pain is controlled. HEENT--PERRL, EOMI, mucous membranes and oropharynx dry. Neck--supple, no JVD or bruits, thyroid normal, trachea midline, no adenopathy. Heart--normal S1 and S2, no extra beats, no murmurs, rubs or gallops. Lungs--clear bilaterally with good air movement, no respiratory distress, no accessory muscle use. Abdomen--normal bowel sounds and soft, nontender and nondistended, no hernias or masses, no organomegaly. Extremities--no cyanosis, clubbing or edema. There are good distal pulses b/l. Dermatologic--normal skin turgor, normal color, warm and dry, no abnormal lymph nodes, no rash. Neurologic--cranial nerves II through XII grossly intact, motor and sensory examination normal. Rheumatologic--right lower extremity with João wrap C/D/I. Psychiatric--normal affect. Assessment and Plan: 1. Status post right total knee arthroplasty on 06/06--seen postoperatively, he is medically stable. 2. Diabetes mellitus--hold metformin and Januvia tonight as noted. Place on Accu-Cheks before meals and at bedtime with NovoLog coverage per scale. 3. CAD/hypertension--no complaint of chest pain or shortness of breath. Continue metoprolol succinate 25 mg by mouth daily, lisinopril 20 mg by mouth daily and aspirin 81 mg by mouth daily. 4. Hyperlipidemia--continue Pravachol 40 mg by mouth daily. 5. Asthma/obstructive sleep apnea-- Continue singular 10 mg by mouth daily, Advair twice a day, and albuterol when necessary. Patient will use own CPAP machine at bedtime.
[2017-06-06] MEDS: TRAMADOL HCL 50 MG TAB PO PRN ×2 (15:46→21:17)
[2017-06-06] MEDS: CEFAZOLIN IV 3,000 MG in DEXTROSE 5% 50ML 50 ML IV SCH ×2 (16:17→23:24)
--- NOTE | 2017-06-06 16:31 | Orthopedic Progress Note ---
Orthopedic Progress Note Date of Service Jun 06, 2017. Subjective Reports: feeling well, calf pain (mild discomfort), pain controlled w PO medications, Denies: complaints, chest pain, SOB, nausea / vomiting, light headedness Objective N/V intact, capillary refill less than 2 sec., dressing C/D/I, A&O x3, toes mobile able to independently SLR and move right ankle; mild tenderness right calf. Ice on right knee. Date Time Temp Pulse Resp B/P (MAP) Pulse Ox O2 Delivery O2 Flow Rate FiO2 06/06/17 14:02 36.9 69 18 132/78 (96) 98 Room Air 06/06/17 12:51 76 18 126/74 (91) 06/06/17 11:42 36.6 64 19 118/73 (88) 99 Nasal Cannula 2.0 06/06/17 11:18 64 18 130/82 (98) 06/06/17 10:45 37.0 76 18 119/69 (86) 97 Nasal Cannula 2.0 06/06/17 10:45 97 Nasal Cannula 2.0 06/06/17 10:45 Nasal Cannula 2.0 06/06/17 10:30 68 16 158/70 97 Nasal Cannula 2 06/06/17 10:15 37.1 64 16 153/80 97 Nasal Cannula 2 06/06/17 10:05 71 23 142/96 97 Nasal Cannula 2 06/06/17 09:57 37.0 74 13 149/75 98 Nasal Cannula 2 06/06/17 05:32 36.7 72 20 178/66 96 Room Air Additional Notes: RIGHT KNEE 1 OR 2 VIEWS ROUTINE HISTORY: 61 years-old Male right knee arthroplasty. COMPARISON: Right knee radiographs 08/11/2016 TECHNIQUE: Portable AP and lateral views of the right knee FINDINGS: There is been recent right total knee arthroplasty with patellar resurfacing. Midline skin cristina are seen anteriorly. Expected postsurgical soft tissue swelling and deep tissue air is noted. No malalignment or periprosthetic fracture. IMPRESSION: Status post right total knee arthroplasty and patellar resurfacing without complication identified. Assessment & Plan Assessment: POD 0 - Right Total Knee Arthroplasty Plan: Doing well Tolerating regular diet May be OOB/WBAT RLE with knee immobilizer on and assistance of a walker Lovenox to start this evening for DVT prophylaxis. Appreciate medicine and pharmacy assistance/input. Will discuss findings with Dr. Louisa Metzger in AM.
[2017-06-06] MEDS ORDERED: LANTUS PER UNIT CHARGE SQ ONE (17:00)
[2017-06-06] MEDS ORDERED: LANTUS PER UNIT CHARGE SQ SCH (18:30)
[2017-06-06] MEDS ORDERED: METFORMIN HCL 500 MG TAB PO SCH (21:00)
[2017-06-06] MEDS: FLUTICASONE/SALMETEROL (ADVAIR) 500/50 INH 14 PUFF INH SCH (21:06)
[2017-06-06] MEDS: ASPIRIN 81 MG ECTAB PO SCH (21:11)
[2017-06-06] MEDS: MONTELUKAST SOD 10 MG TAB PO SCH (21:11)
[2017-06-06] MEDS: LISINOPRIL 20 MG TAB PO SCH (21:11)
[2017-06-06] MEDS: PRAVASTATIN SOD 20 MG TAB PO SCH (21:11)
[2017-06-06] MEDS: TAMSULOSIN HCL 0.4 MG CAP PO SCH (21:12)
[2017-06-06] MEDS: DOCUSATE SODIUM 100 MG CAP PO SCH (21:12)
[2017-06-06] MEDS: ENOXAPARIN 30 MG/0.3 ML SYR SQ SCH (21:20)
[2017-06-06] MEDS: MoRPHine SULFATE 4 MG/ML 1 ML CARP\\VIAL IV PRN (23:11)
[2017-06-07] MEDS: OXYCODONE HCL IR 5 MG TAB (IMMEDIATE RELEASE) PO PRN ×5 (00:14→23:23)
[2017-06-07] MEDS: MoRPHine SULFATE 4 MG/ML 1 ML CARP\\VIAL IV PRN ×3 (01:51→08:23)
[2017-06-07 03:04] VITALS: BP 125/74; PULSE 81; TEMP 37.2; O2SAT 91
[2017-06-07 05:36] LABS: HEMATOCRIT 30.6 % (42-52); MEAN CELL VOLUME 90.3 fL (80-100); MEAN CORPUSCULAR HEMOGLOBIN 30.7 pg (25-34); MEAN PLATELET VOLUME 9.8 fL (7.4-10.4); PLATELET COUNT 215 K/uL (130-400); RED BLOOD COUNT 3.39 M/uL (4.7-6.1); WHITE BLOOD COUNT 9.23 K/uL (4.8-10.8)
[2017-06-07 06:08] LABS: BUN/CREATININE RATIO 13.7 (10-20); CALCIUM 7.5 mg/dl (8.5-10.1); POTASSIUM 3.7 mmol/L (3.5-5.1)
--- NOTE | 2017-06-07 06:47 | DIAGNOSTIC IMAGING REPORT ---
BILATERAL LOWER EXTREMITY VENOUS DOPPLER HISTORY: Acute right-sided calf pain with recent right total knee arthroplasty. COMPARISON STUDY: Right knee radiographs 06/06/2017. FINDINGS: There is normal compressibility, flow, and augmentation within the right lower extremity deep venous system. The anterior tibial vein is not seen secondary to bandaging. The study is limited secondary to likely postsurgical soft tissue edema. IMPRESSION: No sonographic evidence of deep venous thrombosis within the right lower extremity. Electronically signed by: Fortunato Reddy M.D. 06/07/2017 6:46 AM Dictated Date/Time: 06/07/2017 6:44 AM
[2017-06-07 07:59] VITALS: BP 119/72; PULSE 87; TEMP 37.3; O2SAT 91
[2017-06-07] MEDS: SODIUM CHLORIDE 0.9% 1000ML 1,000 ML IV SCH (08:23)
--- NOTE | 2017-06-07 08:39 | Anesthesiology Progress Note ---
Anesthesia Post Op Note Date & Time Jun 07, 2017 at 08:39 Vital Signs Vital Signs Past 12 Hours Date Time Temp Pulse Resp B/P (MAP) Pulse Ox O2 Delivery O2 Flow Rate FiO2 06/07/17 07:59 37.3 87 18 119/72 (88) 91 Room Air 06/07/17 07:05 Room Air 06/07/17 03:04 37.2 81 16 125/74 (91) 91 BiPAP 06/06/17 23:30 CPAP 06/06/17 22:45 37.1 82 16 123/75 (91) 93 Room Air Notes Mental Status: alert / awake / arousable, participated in evaluation Pt Amnestic to Procedure: Yes Nausea / Vomiting: adequately controlled Pain: adequately controlled Airway Patency, RR, SpO2: stable & adequate BP & HR: stable & adequate Hydration State: stable & adequate Neuraxial Anesthesia: was administered, sensory block resolved Anesthetic Complications: no major complications apparent
[2017-06-07] MEDS: MULTIVITAMIN TAB PO SCH (08:57)
[2017-06-07] MEDS: PANTOprazole SOD 40 MG TAB PO SCH (08:57)
[2017-06-07] MEDS: SITAGLIPTIN 100 MG TAB PO SCH (08:57)
[2017-06-07] MEDS: METFORMIN HCL 500 MG TAB PO SCH ×2 (08:57→18:09)
[2017-06-07] MEDS: METOPROLOL SUCC 25MG EXT REL TAB PO SCH (08:57)
[2017-06-07] MEDS: VITAMIN B COMPLEX TAB PO SCH (08:57)
[2017-06-07] MEDS: CHOLECALCIFEROL 1000 INTER.UNIT TAB PO SCH (08:58)
[2017-06-07] MEDS: FLUTICASONE/SALMETEROL (ADVAIR) 500/50 INH 14 PUFF INH SCH ×2 (08:58→21:10)
[2017-06-07] MEDS: ASCORBIC ACID 500 MG TAB PO SCH (08:58)
[2017-06-07] MEDS: DOCUSATE SODIUM 100 MG CAP PO SCH ×2 (08:58→21:12)
--- NOTE | 2017-06-07 08:58 | Hospitalist Progress Note ---
Hospitalist Progress Note Date of Service Jun 07, 2017. (Margo Ellington PA-C) Subjective Pt evaluation today including: conversation w/ patient, physical exam, chart review, lab review, review of studies Pain: Moderate R knee PO Intake: Good Voiding: no voiding problems The patient was seen and examined this morning. Pt reports doing well overall. His sleep overnight was poor due to significant pain in the right knee. He states it went down into his calf, so overnight got an ultrasound to r/o DVT and this was negative. He does feel pain is improved at this point. Pt was up walking with PT to the end of the hallway however was unable to walk back, so use a wheelchair. He is passing gas but not yet had a BM. Pt is tolerating a diet without difficulty. Constitutional: + fatigue, No fever, No chills, No sweats ENT: No nasal symptoms, No trouble swallowing Respiratory: No cough, No wheezing, No shortness of breath, No dyspnea on exertion Cardiovascular: No chest pain, No palpitations Abdomen: No pain, No nausea, No vomiting, No diarrhea, No constipation Musculoskeletal: + see HPI, + joint pain (R knee) Male : No dysuria Neurologic: + numbness/tingling (into RLE), No weakness Skin: No rash, No itch (Margo Ellington PA-C) Objective Vital Signs Date Time Temp Pulse Resp B/P (MAP) Pulse Ox O2 Delivery O2 Flow Rate FiO2 06/07/17 07:59 37.3 87 18 119/72 (88) 91 Room Air 06/07/17 07:05 Room Air 06/07/17 03:04 37.2 81 16 125/74 (91) 91 BiPAP 06/06/17 23:30 CPAP 06/06/17 22:45 37.1 82 16 123/75 (91) 93 Room Air 06/06/17 19:28 150/72 (98) 06/06/17 18:59 37.0 91 16 179/93 (121) 97 Nasal Cannula 2.0 06/06/17 15:25 Room Air 2.0 06/06/17 14:02 36.9 69 18 132/78 (96) 98 Room Air 06/06/17 12:51 76 18 126/74 (91) 06/06/17 11:42 36.6 64 19 118/73 (88) 99 Nasal Cannula 2.0 06/06/17 11:18 64 18 130/82 (98) 06/06/17 10:45 37.0 76 18 119/69 (86) 97 Nasal Cannula 2.0 06/06/17 10:45 97 Nasal Cannula 2.0 06/06/17 10:45 Nasal Cannula 2.0 06/06/17 10:30 68 16 158/70 97 Nasal Cannula 2 06/06/17 10:15 37.1 64 16 153/80 97 Nasal Cannula 2 06/06/17 10:05 71 23 142/96 97 Nasal Cannula 2 06/06/17 09:57 37.0 74 13 149/75 98 Nasal Cannula 2 (Margo Ellington PA-C) Physical Exam General Appearance: WD/WN, no apparent distress, + obese, + pertinent finding ( slightly flushed) Eyes: PERRL, EOMI ENT: hearing grossly normal, pharynx normal Neck: supple, no JVD, + pertinent finding (large neck) Respiratory/Chest: lungs clear, no respiratory distress, no accessory muscle use Cardiovascular: regular rate, rhythm, no murmur Abdomen: normal bowel sounds, non tender, soft Extremities: + pertinent finding (RLE with brace in place, + peripheral edema in ankle. LLE without edema. ) Neurologic/Psychiatric: alert, normal mood/affect, oriented x 3 Skin: normal color, warm/dry (Margo Ellington PA-C) Laboratory Results Last 24 Hours Test 06/06/17 10:03 06/06/17 12:01 06/06/17 16:44 06/06/17 20:47 Bedside Glucose 210 mg/dl 164 mg/dl 155 mg/dl 204 mg/dl Test 06/07/17 05:16 06/07/17 07:57 White Blood Count 9.23 K/uL Red Blood Count 3.39 M/uL Hemoglobin 10.4 g/dL Hematocrit 30.6 % Mean Corpuscular Volume 90.3 fL Mean Corpuscular Hemoglobin 30.7 pg Mean Corpuscular Hemoglobin Concent 34.0 g/dl RDW Standard Deviation 44.7 fL RDW Coefficient of Variation 13.6 % Platelet Count 215 K/uL Mean Platelet Volume 9.8 fL Sodium Level 134 mmol/L Potassium Level 3.7 mmol/L Chloride Level 101 mmol/L Carbon Dioxide Level 27 mmol/L Anion Gap 6.0 mmol/L Blood Urea Nitrogen 14 mg/dl Creatinine 1.00 mg/dl Est Creatinine Clear Calc Drug Dose 99.5 ml/min Estimated GFR () 93.7 Estimated GFR (Non- 80.9 BUN/Creatinine Ratio 13.7 Random Glucose 195 mg/dl Calcium Level 7.5 mg/dl Bedside Glucose 189 mg/dl (Margo Ellington, CLARA) Assessment and Plan Mr. Hillman is a 61 y/o male with PMHx of T2DM, CAD, JOYCE on night CPAP, HTN, HLD, Asthma, GERD, and Prostate CA who is S/P R TKA by Dr. Jasso on 06/06. S/P R TKA on 06/06: - Pain management and bowel regimen on board - PT/OT - DVT prophylaxis - Lovenox T2DM: A1c 6.6 (March 2017) - Resume Metformin 1000 mg BID and Januvia 100 mg daily - ISS with accuchecks ACHS CAD: Single Vessel Disease - ASA 81 mg daily and Pravachol 40 mg daily HTN: - Lisinopril 20 mg daily and Metoprolol Succ 25 mg daily Asthma: Without Exacerbation - Albuterol PRN, Advair BID, and Singulair 10 mg daily JOYCE: - May use own CPAP machine CODE STATUS: FULL code DVT ppx: lovenox Disposition: From home, discharge per primary team (Margo Ellington PA-C) PA Physician Supervision Note: I interviewed and examined the patient. Discussed with Margo Ellington PAC and agree with findings and plan as documented in the note. Any exceptions or clarifications are listed here: None Patient is stable postop total knee replacement, porcine diabetes metformin Januvia restarted, for cardiovascular aspirin Pravachol lisinopril is used for hypertension and his asthma has remained stable Documented By: Niall Hammond (Niall Hammond M.D.)
[2017-06-07] MEDS ORDERED: SITAGLIPTIN 50 MG PO SCH (09:00)
[2017-06-07] MEDS ORDERED: MULTIVITAMIN TAB PO SCH (09:00)
[2017-06-07] MEDS: INSULIN ASPART 100 UNITS/ML 3 ML PEN SC SCH ×4 (09:00→21:16)
[2017-06-07] MEDS: TRAMADOL HCL 50 MG TAB PO PRN ×2 (09:08→21:14)
[2017-06-07] MEDS ORDERED: MoRPHine SULFATE 10 MG/ML CARP/VIAL IV PRN (09:30)
[2017-06-07] MEDS ORDERED: MoRPHine SULFATE 4 MG/ML 1 ML CARP\\VIAL IV PRN (09:30)
--- NOTE | 2017-06-07 09:41 | Progress Note ---
Progress Note Date of Service Jun 07, 2017. Progress Note Mr. Barfield is resting comfortably in bed. His pain is improved. He did have pain which is pain in the upper calf and posterior knee. He had an ultrasound done which was negative for DVT. He is afebrile and his vital signs are stable. His labs are noted. He has a dopplerable dorsalis pedis pulse the foot is warm with mild to moderate swelling. Sensation is intact to light touch throughout the foot. He does not have passive range of motion of the ankle or toes. He has 5 out of 5 ankle and toe plantarflexion and dorsiflexion strength. His Silverlon dressing is intact. LOBO hoses applied. Impression right knee replacement #2 prostate cancer #3 diabetes #3 obesity and sleep apnea coronary artery disease Plan doing well. He reviewed pain management medication options with him. OxyContin 10 mg by mouth every 12 is adequate. The exercises with him. I discussed with him the findings related to the surgery. We'll continue to monitor his calf pain and recovery. He'll be started on Lovenox for DVT prophylaxis.
[2017-06-07] MEDS: ENOXAPARIN 30 MG/0.3 ML SYR SQ SCH ×2 (10:56→21:19)
[2017-06-07] MEDS: OXYCODONE HCL 10 MG TABCR (OXYCONTIN) PO SCH ×2 (10:56→21:14)
[2017-06-07] MEDS: CeleBREX 200 MG CAP PO SCH ×2 (10:56→21:12)
--- NOTE | 2017-06-07 10:56 | Pharmacy Progress Note ---
Glycemic Control Progress Note Date of Service Jun 07, 2017. Scope Glycemic Pharmacist consulted for glycemic control to write orders per [facility] inpatient glycemic control protocol. Objective Accuchecks BSG (last 24hrs): Test 06/06/17 12:01 06/06/17 16:44 06/06/17 20:47 06/07/17 05:16 Bedside Glucose 164 mg/dl (70-99) 155 mg/dl (70-99) 204 mg/dl (70-99) Random Glucose 195 mg/dl (70-99) Test 06/07/17 07:57 Bedside Glucose 189 mg/dl (70-99) HbA1c: 6.6% on 03/29/17 Recent Pertinent Medications The patient is currently receiving: * Basal insulin: Lantus 20 units every 24 hours x 1 dose 06/06 with dinner * Correctional Insulin: Novolog Correction per scale ACHS Goal Range: Low 110 mg/dL - High 140 mg/dL Correction Factor: 20 mg/dL/unit * Prandial insulin: Per carb ratio of 1 unit per 7 grams CHO consumed * Oral Agents: Currently on hold post op and using SQ basal bolus insulin regimen Outpatient Anti-Diabetic Meds Oral Agents Assessment & Plan ASSESSMENT: * See progress note from 06/06/17 for more background info, in short: * Pt receiving SQ basal bolus insulin regimen for hyperglycemia secondary to baseline DM (outpatient regimen on hold), recent surgery, steroids pre- operatively * Patient has received 33 units of insulin over the past 24 hrs * 20 units of basal insulin * 13 units of prandial/correctional insulin * BSGs ranging 155 - 204 mg/dl over the past 24hrs * Changes needed to insulin regimen: * BSGs elevated over the past 24hrs likely d/t insufficient insulin dosing to cover steroid induced hyperglycemia from dxm given pre-op. Dxm hyperglycemic effects likely diminishing today/over the next 24hrs. * Renal function at baseline/WNL. Tolerating PO. * Will resume outpatient oral agents and start to taper insulin regimen. PLAN FOR INPATIENT GLYCEMIC CONTROL: * Oral Agents * Resume outpatient oral diabetes medications. * Januvia 100mg PO QAM * Metformin 1,000mg PO BIDM * Basal insulin * Resume if BSG > 180 * BSGs 189, 204mg/dl today --> will resume basal insulin at a reduced dose since oral agents resumed * Lantus 15 units SQ x 1 dose today with dinner * Bolus insulin * NovoLog per scale ACHS or Q6hrs while NPO * Goal Range: Low 110 mg/dL - High 140 mg/dL * Correction Factor: 20 mg/dL/unit * Nutritional / Prandial insulin per carb ratio of 1 unit per 7 grams CHO consumed * Will lessen/taper these parameters after outpatient antidiabetic meds resumed. * Please note that the plan above was derived based on current level of insulin resistance and hospital stress. These recommendations are appropriate for inpatient admission only. Plan of care upon discharge will need to be reassessed to avoid potential outpatient hypo/hyperglycemia. Thank you.
--- NOTE | 2017-06-07 11:39 | Discharge Instructions ---
Discharge Instructions Date of Service Jun 07, 2017. Admission Reason for Admission: Right Knee Degenerative Joint Disease Discharge Discharge Diagnosis / Problem: Right knee Degenerative joint disease Discharge Goals Goal(s): Decrease discomfort, Improve function, Increase independence Activity Recommendations Activity Limitations: per Instructions/Follow-up section Weightbearing Status: Right weightbearing (as tolerated) . Instructions / Follow-Up Instructions / Follow-Up New Medicine: * You will likely be taking one or more of these medications: 1. Lovenox - You will be on Lovenox 30 mg twice daily for 4 weeks after surgery to prevent blood clots. The CBC blood test will need to be done weekly while on Lovenox. Aspirin, 81 mg is OK to take while on Lovenox. 2. Oxycontin - Take one every 12 hours. 3. Oxycodone IR - Take, as directed, when you need it, every four to six hours to control your pain. 4. Colace & Senokot - Take to prevent constipation which can be caused by narcotics. These can be bought [id number] at the pharmacy 5. Tramadol - take, as directed, when you need it, every 4 to 6 hours to control your pain. 6. Celebrex - take, twice daily with food 7. Tylenol - 650mg up to three times/day as needed for pain. * The most common side effects of pain medicine and iron are nausea and constipation. If nausea or constipation is too much of a problem or if you have any questions about your new medicines or doses, call [facility] at . We will try to help you manage these issues. VERY IMPORTANT TO READ AND REVIEW" Blood Clots and Blood Thinning Medicine: * You are given Lovenox during the immediate post-operative period to lessen the risk of blood clots forming in your legs and/or lungs. Lovenox is usually given for three to four weeks after surgery. Physical Therapy: * Do your physical therapy at home. These are the exercises you learned while in the hospital (quad sets, leg raises, calf pumps, gluteal squeezes, knee bending, and heel props.) You should do these exercises 3-4 times per day. * You will either go to inpatient rehab ([facility]), home with Home Therapy and nursing or home with outpatient rehab. You should do rehab with the therapist 2-3 times per week. You should do therapy on your own daily. * You may bear full weight on your leg with crutches or walker unless otherwise advised. Home Exercise: * You were shown a series of exercises (heel props, heel slides, etc.) in the hospital. Do these exercises three to four times each day including the exercises you were shown in physical therapy. Walking: * You may be up for short periods of time. Standing and walking for 1-2 hours at a time is usually okay. You should not stand or walk for excessive periods of time as this may cause increased pain and swelling. SELF CARE INSTRUCTIONS AFTER TOTAL KNEE REPLACEMENT A. You may need to continue a physical therapy program after discharge from the hospital. There are several options available to you. Your doctor will assist you in selecting the best one for you. 1. An out-patient facility 2 to 3 times a week for therapy or home therapy. 2. Continue working on all exercises taught to you in the hospital. Your goals should be to increase bending of your knee to 90 degrees and beyond and to fully straighten your knee. B. Your therapist will notify you when you are able to progress from a walker to a cane. C. Wear TEDS as much as possible.~ They may be removed at night for laundering. D. Do not place a pillow behind your knee when resting. A pillow at your ankle is okay. E. Ice your knee 15-20 minutes every 2-3 hours and elevate it above the level of your heart. F. You may shower on the fourth day after surgery using regular soap and water. Do not submerge until the wound is completely healed (approximately 2 weeks ). Until the fourth day after surgery, cover the incision/bandage with a bag or plastic wrap. G. Anyone who is touching your surgical incision area should wash their hands and wear gloves. H. Keep your incision covered with gauze pads under the LOBO hose until it is dry. I. KEEP dressings on right leg until your follow up next week. Do not get wet. Okay to put LOBO over dressings today VERY IMPORTANT TO READ AND REVIEW A. YOU WILL BE GIVEN AN ORDER AT DISCHARGE FOR PT/INR (BLOOD WORK). PLEASE HAVE THIS DONE INSTRUCTED. PLEASE CALL OUR OFFICE AFTER YOUR BLOODWORK IS COMPLETE SO WE CAN TRACK YOUR RESULTS. IF YOU ARE GOING TO OUTPATIENT PHYSICAL THERAPY, YOU WILL NEED TO GO TO OUTPATIENT TESTING TO HAVE IT DRAWN. B. There are a few signs you need to watch for after you are home. Call [facility] if you notice any of the followin. Increased severe knee pain. Some pain is expected especially when you exercise. 2. Increased swelling in your leg or knee; pain or swelling of the calf muscle in either lower leg. 3. Any fluid drainage from the incision. 4. Shortness of breath or chest pain. 5. Numbness and tingling in the surgical extremity C. Please call [facility] at if you have any concerns or questions about your operation or recovery. The doctor or his nurse will return your call promptly. D. Do not have any elective dental work or other elective procedures done for 6 weeks after your knee replacement. When you have any invasive procedure (dental cleaning, extraction, colonoscopy etc) performed, you will need to take antibiotics to prevent infection from developing in your artificial joint. Tell your other health care providers you have an artificial joint. My office will supply you with further information and the antibiotics. Call your doctor if: * Temperature above 101 degrees F. * Pain not relieved by pain medicine ordered. * Increased drainage or redness from incision. * Notify your doctor with any questions or concerns. Follow-up Visit: * You have a follow up with Dr. Jasso/[facility] on 06/13/17 at 9:00 a.m. You will follow-up with Dr. Jasso 10-14 days after surgery. The office number is . * You have a follow up appointment with Dr. Jasso on 06/19/17 at 11:45 p.m. * You should schedule outpatient physical therapy at the clinic of your choice around 2 weeks after your surgery. After your follow up visit with Dr. Jasso would also be fine. You will need a prescription for that physical therapy clinic, please notify our office and we will provide. This is to continue physical therapy after you've been discharged from home physical therapy. Avoid all tobacco products. If you need help to stop smoking, call [place] QUIT[facility] at . This is a free call. Current Hospital Diet Patient's current hospital diet: Diabetes Type 2 Diet Discharge Diet Recommended Diet: Regular Diet, Diabetes Type 2 Diet Procedures Procedures Performed: Right Total Knee Arthroplasty Pending Studies Studies pending at discharge: no Medical Emergencies . Who to Call and When: Medical Emergencies: If at any time you feel your situation is an emergency, please call 911 immediately. . Non-Emergent Contact Non-Emergency issues call your: Surgeon Call Non-Emergent contact if: temperature is above 101, your pain is not controlled, your pain is concerning you, wound has increased drainage, wound has increased redness, wound has increased pain, you have any medication questions . "Provider Documentation" section prepared by Michelle Boyd. . VTE Core Measure Inpt VTE Proph given/why not?: Enoxaparin (Lovenox)SQ (30 mg BID x 4 weeks), [facility] [place] Drug Monitoring Program Search Results: patient reviewed within database, no issues identified
[2017-06-07 13:02] VITALS: BP 146/69; PULSE 86; TEMP 36.4; O2SAT 90
[2017-06-07] MEDS ORDERED: LANTUS PER UNIT CHARGE SQ SCH (16:00)
[2017-06-07 16:55] VITALS: BP 127/71; PULSE 89; TEMP 36.9; O2SAT 92
[2017-06-07] MEDS: TAMSULOSIN HCL 0.4 MG CAP PO SCH (21:12)
[2017-06-07] MEDS: ASPIRIN 81 MG ECTAB PO SCH (21:12)
[2017-06-07] MEDS: PRAVASTATIN SOD 20 MG TAB PO SCH (21:13)
[2017-06-07] MEDS: LISINOPRIL 20 MG TAB PO SCH (21:13)
[2017-06-07] MEDS: MONTELUKAST SOD 10 MG TAB PO SCH (21:13)
[2017-06-07 23:34] VITALS: BP 125/72; PULSE 100; TEMP 37; O2SAT 90
[2017-06-08] MEDS: TRAMADOL HCL 50 MG TAB PO PRN ×2 (03:30→08:05)
[2017-06-08] MEDS: OXYCODONE HCL IR 5 MG TAB (IMMEDIATE RELEASE) PO PRN ×2 (05:22→13:25)
[2017-06-08 06:38] VITALS: BP 113/68; PULSE 99; TEMP 36.7; O2SAT 92
[2017-06-08 06:43] LABS: PARTIAL THROMBOPLASTIN RATIO 1.1
[2017-06-08] MEDS: CeleBREX 200 MG CAP PO SCH (07:57)
[2017-06-08] MEDS: MULTIVITAMIN TAB PO SCH (07:57)
[2017-06-08] MEDS: FLUTICASONE/SALMETEROL (ADVAIR) 500/50 INH 14 PUFF INH SCH (07:57)
[2017-06-08] MEDS: SITAGLIPTIN 100 MG TAB PO SCH (07:57)
[2017-06-08] MEDS: PANTOprazole SOD 40 MG TAB PO SCH (07:58)
[2017-06-08] MEDS: ASCORBIC ACID 500 MG TAB PO SCH (07:58)
[2017-06-08] MEDS: CHOLECALCIFEROL 1000 INTER.UNIT TAB PO SCH (07:58)
[2017-06-08] MEDS: METFORMIN HCL 500 MG TAB PO SCH (07:58)
[2017-06-08] MEDS: DOCUSATE SODIUM 100 MG CAP PO SCH (07:58)
[2017-06-08] MEDS: VITAMIN B COMPLEX TAB PO SCH (07:58)
[2017-06-08] MEDS: METOPROLOL SUCC 25MG EXT REL TAB PO SCH (07:59)
[2017-06-08] MEDS: INSULIN ASPART 100 UNITS/ML 3 ML PEN SC SCH ×2 (08:05→12:00)
[2017-06-08] MEDS: OXYCODONE HCL 10 MG TABCR (OXYCONTIN) PO SCH (08:06)
[2017-06-08] MEDS ORDERED: LANTUS PER UNIT CHARGE SQ SCH (09:00)
[2017-06-08] MEDS: ENOXAPARIN 30 MG/0.3 ML SYR SQ SCH (09:55)
[2017-06-08] MEDS ORDERED: LVNIS30 SQ (12:21)
[2017-06-08] MEDS ORDERED: OXYSR10 PO (12:21)
[2017-06-08] MEDS ORDERED: ACET-1047 PO (12:21)
[2017-06-08] MEDS ORDERED: CLB200 PO (12:21)
[2017-06-08] MEDS ORDERED: ULT50X PO (12:21)
[2017-06-08] MEDS ORDERED: RXC5 PO (12:21)
[2017-06-08] MEDS ORDERED: CLC100 PO (12:21)
--- NOTE | 2017-06-08 12:33 | Discharge Summary ---
Discharge Summary Date of Service Jun 08, 2017. Discharge Summary Admission Date: Jun 06, 2017 at 06:00 Discharge Date: Jun 08, 2017 Discharge Disposition: Home with services Principal Diagnosis: Right knee degenerative joint disease Secondary Diagnoses/Problems: DM, HTN, hyperlipidemia, obesity, CAD, sleep apnea, GERD Procedures: Right total knee arthroplasty 06/06/[address] Holger Jasso Consultations: Hospitalist; glycemic control consults Pending Studies/Follow-Up: Follow up with [facility] as scheduled. Appointments noted in discharge instructions. Medication Reconciliation New Medications: Acetaminophen (Mapap) 325 Mg Tab 650 MG PO Q6H PRN for PAIN/TEMP GREATER THAN 38 C for 30 Days, #240 TAB Celecoxib (Celebrex) 200 Mg Cap 200 MG PO BID for 7 Days, #14 CAP Docusate Sodium (Docusate Sodium) 100 Mg Cap 100 MG PO BID for 30 Days, #60 CAP Enoxaparin (Lovenox) 30 Mg/0.3 Ml Inj 30 MG SQ Q12H for 28 Days, #56 SYR 0 Refills Oxycodone HCl (Oxycontin) 10 Mg Tabcr 10 MG PO Q12H for 7 Days, #14 TABS 0 Refills Oxycodone HCl (Oxycodone HCl) 5 Mg Tab 5-10 MG PO Q4H PRN for Pain, #30 TAB 0 Refills Tramadol HCl (Tramadol HCl) 50 Mg Tab 50-100 MG PO Q4H PRN for Pain, #30 TAB Continued Medications: Albuterol Hfa (Ventolin Hfa) 200 Puffs/79899 Mcg Aers 2-4 PUFFS INH QID PRN for Wheezing, #1 INHALER Ascorbic Acid (Vitamin C) 1,000 Mg Tab 1000 MG PO QAM Aspirin (Aspirin Ec) 81 Mg Tab 81 MG PO QPM B-Complex W/ Folic Acid (Super B Complex Maxi) 1 Tab Tab 1 TAB PO QAM Cholecalciferol (Vitamin D3) 2,000 Unit Cap 1 CAP PO QAM for 30 Days, #30 CAP 3 Refills Fluticasone Prop/Salmeterol (Advair Diskus 500/50 60 Dose) 1 Ea Aerp 1 PUFFS INH BID for 30 Days, #1 INHALER 5 Refills Fluticasone Propionate (Inhala (Flovent Diskus) 100 Mcg/Blist Aer 1 INHA NA HS, #1 INHALER 5 Refills Krill Oil (Krill Oil) 1 Cap Cap 1 CAN PEG QAM Lisinopril (Zestril) 20 Mg Tab 20 MG PO QPM, TAB Metformin Hcl (Glucophage) 1,000 Mg Tab 1000 MG PO BID, TAB Metoprolol Succinate (Toprol Xl) 25 Mg Tabcr 1 TAB PO QAM for 30 Days, #30 TAB 5 Refills Montelukast Sodium (Singulair) 10 Mg Tab 1 TAB PO QPM for 90 Days, TAB 1 Refill Multivitamin (Multivitamin) Tab 1 TAB PO QAM, TAB Pantoprazole (Protonix) 40 Mg Tab 40 MG PO QAM, #30 TAB Pravastatin (Pravachol ) 20 Mg Tab 40 MG PO HS, TAB Sitagliptin (Januvia) 50 Mg Tab 100 MG PO QAM, TAB Tamsulosin Hcl (Flomax) 0.4 Mg Cap 1 CAP PO QPM for 30 Days, CAP 5 Refills Discontinued Medications: Zhpqbdxvzlf-Tyezotqlwar-Kbfetd (Move Free Joint Health Ad) 1 Tab Tab 1 TAB PO QAM Hospital Course Patient is a 61-year-old male who was admitted to [facility] on 06/06/2017 after undergoing an elective right total knee arthroplasty by Dr. Holger Jasso. His surgery was done with spinal anesthesia in peripheral nerve block. He was given 3 g of IV Ancef for surgical prophylaxis which was continued 24 hours postoperatively. He tolerated the procedure well without any intraoperative or postoperative complications. Postoperative x-ray of his right knee revealed a stable right total knee arthroplasty. Postoperatively hospitalist consult was ordered for postoperative medical management. Glycemic control consult was also placed for management of his diabetes during his hospital stay. He was able to use his own CPAP machine from home. IV and oral pain medication was prescribed for pain control. He was complaining of some calf pain postoperatively on postoperative day 0 in the hospitalist service ordered a venous Doppler ultrasound which was negative for DVT. Surgical dressings were removed for this ultrasound and new dressings were applied. He was allowed out of bed, weightbearing as tolerated right lower extremity with the assistance of a walker and knee immobilizer. He was seen by case management and social media manager for discharge needs. This determined that he would return home with his with in-home health, referral was made. Given a prescription for a walker during his hospital stay which was obtained from [facility]. Complained of pain on postoperative day 1, stated that he had a rough night. His pain was 9 out of 10. His pain medication was adjusted and his IV medication dosage was increased for better pain control. He was able to participate in therapy postoperative day 1 and did well out of bed and with ambulation and range of motion exercises. Was able to tolerate a regular diet after surgery. Labs were followed he did develop postoperative acute blood loss anemia which is monitored during his hospital stay. No transfusions were necessary. His dressings were changed on postoperative day 2, incision was clean dry and intact and fracture blisters were noted. His were sterilely unroofed by Dr. Jasso at bedside. Dressings were applied along with an João bandage and LOBO stockings. Postoperatively he was placed on Lovenox 30 mg twice a day for DVT prophylaxis as well as foot pumps and LOBO stockings. His pain was better controlled with the change in pain medication regimen. He was stable medically during his hospital stay. He was stable for discharge to his home. He was discharged to his home with his on 06/08/2017 in stable condition. Discharge instructions were provided. Total time spent on discharge = This includes examination of the patient, discharge planning, medication reconciliation, and communication with other providers. Discharge Instructions Discharge Instructions Date of Service Jun 07, 2017. Admission Reason for Admission: Right Knee Degenerative Joint Disease Discharge Discharge Diagnosis / Problem: Right knee Degenerative joint disease Discharge Goals Goal(s): Decrease discomfort, Improve function, Increase independence Activity Recommendations Activity Limitations: per Instructions/Follow-up section Weightbearing Status: Right weightbearing (as tolerated) . Instructions / Follow-Up Instructions / Follow-Up New Medicine: * You will likely be taking one or more of these medications: 1. Lovenox - You will be on Lovenox 30 mg twice daily for 4 weeks after surgery to prevent blood clots. The CBC blood test will need to be done weekly while on Lovenox. Aspirin, 81 mg is OK to take while on Lovenox. 2. Oxycontin - Take one every 12 hours. 3. Oxycodone IR - Take, as directed, when you need it, every four to six hours to control your pain. 4. Colace & Senokot - Take to prevent constipation which can be caused by narcotics. These can be bought [id number] at the pharmacy 5. Tramadol - take, as directed, when you need it, every 4 to 6 hours to control your pain. 6. Celebrex - take, twice daily with food 7. Tylenol - 650mg up to three times/day as needed for pain. * The most common side effects of pain medicine and iron are nausea and constipation. If nausea or constipation is too much of a problem or if you have any questions about your new medicines or doses, call [facility] at . We will try to help you manage these issues. VERY IMPORTANT TO READ AND REVIEW" Blood Clots and Blood Thinning Medicine: * You are given Lovenox during the immediate post-operative period to lessen the risk of blood clots forming in your legs and/or lungs. Lovenox is usually given for three to four weeks after surgery. Physical Therapy: * Do your physical therapy at home. These are the exercises you learned while in the hospital (quad sets, leg raises, calf pumps, gluteal squeezes, knee bending, and heel props.) You should do these exercises 3-4 times per day. * You will either go to inpatient rehab ([facility]), home with Home Therapy and nursing or home with outpatient rehab. You should do rehab with the therapist 2-3 times per week. You should do therapy on your own daily. * You may bear full weight on your leg with crutches or walker unless otherwise advised. Home Exercise: * You were shown a series of exercises (heel props, heel slides, etc.) in the hospital. Do these exercises three to four times each day including the exercises you were shown in physical therapy. Walking: * You may be up for short periods of time. Standing and walking for 1-2 hours at a time is usually okay. You should not stand or walk for excessive periods of time as this may cause increased pain and swelling. SELF CARE INSTRUCTIONS AFTER TOTAL KNEE REPLACEMENT A. You may need to continue a physical therapy program after discharge from the hospital. There are several options available to you. Your doctor will assist you in selecting the best one for you. 1. An out-patient facility 2 to 3 times a week for therapy or home therapy. 2. Continue working on all exercises taught to you in the hospital. Your goals should be to increase bending of your knee to 90 degrees and beyond and to fully straighten your knee. B. Your therapist will notify you when you are able to progress from a walker to a cane. C. Wear TEDS as much as possible.~ They may be removed at night for laundering. D. Do not place a pillow behind your knee when resting. A pillow at your ankle is okay. E. Ice your knee 15-20 minutes every 2-3 hours and elevate it above the level of your heart. F. You may shower on the fourth day after surgery using regular soap and water. Do not submerge until the wound is completely healed (approximately 2 weeks ). Until the fourth day after surgery, cover the incision/bandage with a bag or plastic wrap. G. Anyone who is touching your surgical incision area should wash their hands and wear gloves. H. Keep your incision covered with gauze pads under the LOBO hose until it is dry. I. KEEP dressings on right leg until your follow up next week. Do not get wet. Okay to put LOBO over dressings today VERY IMPORTANT TO READ AND REVIEW A. YOU WILL BE GIVEN AN ORDER AT DISCHARGE FOR PT/INR (BLOOD WORK). PLEASE HAVE THIS DONE INSTRUCTED. PLEASE CALL OUR OFFICE AFTER YOUR BLOODWORK IS COMPLETE SO WE CAN TRACK YOUR RESULTS. IF YOU ARE GOING TO OUTPATIENT PHYSICAL THERAPY, YOU WILL NEED TO GO TO OUTPATIENT TESTING TO HAVE IT DRAWN. B. There are a few signs you need to watch for after you are home. Call [facility] if you notice any of the followin. Increased severe knee pain. Some pain is expected especially when you exercise. 2. Increased swelling in your leg or knee; pain or swelling of the calf muscle in either lower leg. 3. Any fluid drainage from the incision. 4. Shortness of breath or chest pain. 5. Numbness and tingling in the surgical extremity C. Please call [facility] at if you have any concerns or questions about your operation or recovery. The doctor or his nurse will return your call promptly. D. Do not have any elective dental work or other elective procedures done for 6 weeks after your knee replacement. When you have any invasive procedure (dental cleaning, extraction, colonoscopy etc) performed, you will need to take antibiotics to prevent infection from developing in your artificial joint. Tell your other health care providers you have an artificial joint. My office will supply you with further information and the antibiotics. Call your doctor if: * Temperature above 101 degrees F. * Pain not relieved by pain medicine ordered. * Increased drainage or redness from incision. * Notify your doctor with any questions or concerns. Follow-up Visit: * You have a follow up with Dr. Jasso/[facility] on 06/13/17 at 9:00 a.m. You will follow-up with Dr. Jasso 10-14 days after surgery. The office number is . * You have a follow up appointment with Dr. Jasso on 06/19/17 at 11:45 p.m. * You should schedule outpatient physical therapy at the clinic of your choice around 2 weeks after your surgery. After your follow up visit with Dr. Jasso would also be fine. You will need a prescription for that physical therapy clinic, please notify our office and we will provide. This is to continue physical therapy after you've been discharged from home physical therapy. Avoid all tobacco products. If you need help to stop smoking, call [facility] at . This is a free call. Current Hospital Diet Patient's current hospital diet: Diabetes Type 2 Diet Discharge Diet Recommended Diet: Regular Diet, Diabetes Type 2 Diet Procedures Procedures Performed: Right Total Knee Arthroplasty Pending Studies Studies pending at discharge: no Medical Emergencies . Who to Call and When: Medical Emergencies: If at any time you feel your situation is an emergency, please call 911 immediately. . Non-Emergent Contact Non-Emergency issues call your: Surgeon Call Non-Emergent contact if: temperature is above 101, your pain is not controlled, your pain is concerning you, wound has increased drainage, wound has increased redness, wound has increased pain, you have any medication questions . "Provider Documentation" section prepared by Michelle Boyd. . VTE Core Measure Inpt VTE Proph given/why not?: Enoxaparin (Lovenox)SQ (30 mg BID x 4 weeks), [facility] [place] Drug Monitoring Program Search Results: patient reviewed within database, no issues identified
--- NOTE | 2017-06-08 12:34 | PROGRESS NOTE ---
DATE: 06/08/2017 DATE: 06/08/2017 SUBJECTIVE: Resting comfortably in bed. Pain is well controlled. Has not had a bowel movement but denies any chest pain, shortness of breath or belly pain. He is afebrile. His vital signs are stable. He has a warm foot with capillary refill less than 2 seconds. His pedal pulses are perhaps a trace palpable. He has moderate swelling in the leg, not severe. He has no pain with passive range of motion or active movement of the ankle and toes and his strength distally is 5/5. He cannot do a straight leg raise. His quad set is poor. The dressing is removed and underneath there are multiple blisters, several small ones inferior and superior. There are 3 larger blisters medial, lateral and distal. The leg is cleaned with sterile saline and dried. The blisters are prepped with Betadine and then punctured with sterile scissors and then covered with Xeroform, 4 x 4's, ABD, Kerlix, João wrap and LOBO hose. IMPRESSION: Right knee replacement, diabetes, prostate cancer, multiple medical problems. PLAN: Findings are discussed. Blister care is performed. I think that he is ready for discharge. He will follow up with me on Monday. He will leave the dressing as it is. Home therapy will be arranged over the weekend. The importance of elevation is discussed. He should not be up for any long periods of time. We talked about his pets, wound care, pain medication regimen, bowel regimen and things to watch out for severe pain, swelling, fevers, numbness and tingling. Please call the office. He will be on Celebrex, Ultram, Tylenol, Oxycodone and OxyContin. He can be up for short periods of time to do therapy. Tight diabetes control is important.
--- NOTE | 2017-06-08 12:51 | Hospitalist Progress Note ---
Hospitalist Progress Note Date of Service Jun 08, 2017. Subjective Pt evaluation today including: conversation w/ patient, conversation w/ family , physical exam, chart review, lab review, review of studies Pain: None PO Intake: Good Voiding: no voiding problems The patient was seen and examined this morning. Pt reports doing well today, anticipating going home. He reports some nasal drainage but hasn't used flonase in 2 days. He is requesting something for wheezing. Pt denies any fever, chills, sweats, abd pain, chest pain or sob. ROS: 6 point ROS reviewed and otherwise negative. Objective Vital Signs Date Time Temp Pulse Resp B/P (MAP) Pulse Ox O2 Delivery O2 Flow Rate FiO2 06/08/17 07:40 Room Air 06/08/17 06:38 36.7 99 16 113/68 (83) 92 Room Air 06/07/17 23:34 37.0 100 18 125/72 (89) 90 CPAP 06/07/17 23:30 Room Air CPAP 06/07/17 16:55 36.9 89 18 127/71 (89) 92 Room Air 06/07/17 16:00 Room Air 06/07/17 13:02 36.4 86 18 146/69 (94) 90 Room Air Physical Exam General Appearance: + obese Notes: General Appearance: WD/WN, no apparent distress, + obese Eyes: PERRL, EOMI ENT: hearing grossly normal, pharynx normal Neck: supple, no JVD, + pertinent finding (large neck) Respiratory/Chest: + faint expiratory wheeze throughout, on room air, no respiratory distress, no accessory muscle use Cardiovascular: regular rate, rhythm, no murmur Abdomen: normal bowel sounds, non tender, soft Extremities: + pertinent finding (RLE with brace in place, + peripheral edema in ankle. LLE without edema. ) Neurologic/Psychiatric: alert, normal mood/affect, oriented x 3 Skin: normal color, warm/dry Laboratory Results Last 24 Hours Test 06/07/17 16:58 06/07/17 19:34 06/07/17 20:55 06/08/17 05:03 Bedside Glucose 165 mg/dl 191 mg/dl 176 mg/dl Activated Partial Thromboplast Time 29.2 SECONDS Partial Thromboplastin Ratio 1.1 Test 06/08/17 06:44 8/31/17 12:04 Bedside Glucose 185 mg/dl 179 mg/dl Assessment and Plan Mr. Hillman is a 61 y/o male with PMHx of T2DM, CAD, JOYCE on night CPAP, HTN, HLD, Asthma, GERD, and Prostate CA who is S/P R TKA by Dr. Jasso on 06/06. S/P R TKA on 06/06: - Pain management and bowel regimen on board per primary team - PT/OT- plans for home health services upon discharge - DVT prophylaxis - Lovenox T2DM: A1c 6.6 (March 2017) - Resume Metformin 1000 mg BID and Januvia 100 mg daily - ISS with accuchecks ACHS CAD: Single Vessel Disease - ASA 81 mg daily and Pravachol 40 mg daily HTN: - Lisinopril 20 mg daily and Metoprolol Succ 25 mg daily Asthma: Without Exacerbation - Albuterol PRN, Advair BID, and Singulair 10 mg daily - Faint wheeze heard today - will order 1 duoneb treatment prior to discharge. Pt has not taken flonase since being here. Should resume upon discharge. He also has zyrtec on hand at home for allergies. JOYCE: - May use own CPAP machine CODE STATUS: FULL code DVT ppx: lovenox, teds, scds Disposition: From home, discharge home today per primary team
[2017-06-08] MEDS ORDERED: ALBUT/IPRATROP 3MG/0.5MG NEB 3 ML VIAL INH ONE (13:00)
[2017-06-08 13:09] VITALS: PULSE 95; O2SAT 90
[2017-06-08 13:52] VITALS: BP 113/68; PULSE 95; TEMP 36.7; O2SAT 90
== END 2017-06-08 14:45 | disposition home health service (06) | DRG 470 ==
LOC: C.ACU 04:59 → C.3E 06:00 → ENRESERV 10:23
PROVIDERS: ADMIT Physical Medicine & Rehabilitation Sports Medicine; ATTEND Physical Medicine & Rehabilitation Sports Medicine
PROC: 0SRC0J9 Replacement of Right Knee Joint with Synthetic Substitute, Cemented, Open Approach (ICD-10-PCS; principal; 2017-06-06 07:00)
DX: M17.0 Bilateral primary osteoarthritis of knee (principal); D62 Acute posthemorrhagic anemia; Z68.41 Body mass index [BMI] 40.0-44.9, adult; E11.9 Type 2 diabetes mellitus without complications; I25.10 Atherosclerotic heart disease of native coronary artery without angina pectoris; I10 Essential (primary) hypertension; E78.5 Hyperlipidemia, unspecified; J45.909 Unspecified asthma, uncomplicated; G47.33 Obstructive sleep apnea (adult) (pediatric); C61 Malignant neoplasm of prostate; K21.9 Gastro-esophageal reflux disease without esophagitis; M79.661 Pain in right lower leg; E66.01 Morbid (severe) obesity due to excess calories; Z72.89 Other problems related to lifestyle; Z87.891 Personal history of nicotine dependence; Z79.51 Long term (current) use of inhaled steroids; Z79.82 Long term (current) use of aspirin; Z79.84 Long term (current) use of oral hypoglycemic drugs; Z79.899 Other long term (current) drug therapy; Z88.8 Allergy status to other drugs, medicaments and biological substances; Z82.49 Family history of ischemic heart disease and other diseases of the circulatory system; Z83.3 Family history of diabetes mellitus

== ENCOUNTER → 2017-06-13 | Outpatient (CLI) | payer OTHER ==
[~2017-06-13] MED LIST changes: +ACET-1047 PO; +CLB200 PO; +CLC100 PO; -GLUC1TAB94 PO; +LVNIS30 SQ; +OXYSR10 PO; +RXC5 PO; +ULT50X PO
--- NOTE | 2017-06-13 13:02 | DIAGNOSTIC IMAGING REPORT ---
RIGHT LOWER EXTREMITY VENOUS DOPPLER HISTORY: R LEG PAIN/SWELLING, S/P TOTAL KNEE COMPARISON STUDY: Venous Doppler 06/07/2017. FINDINGS: There is normal compressibility, flow, and augmentation within the right lower extremity deep venous system. IMPRESSION: No DVT within the right lower extremity Electronically signed by: Andrew Montiel M.D. 06/13/2017 12:28 PM Dictated Date/Time: 06/13/2017 12:27 PM
== END | disposition home or self-care (01) ==
LOC: C.ULTR 11:15
PROVIDERS: ATTEND Physician Assistant
DX: Z96.651 Presence of right artificial knee joint (principal); M79.89 Other specified soft tissue disorders

== ENCOUNTER → 2017-06-16 | Outpatient (CLI) | payer OTHER | END | disposition home or self-care (01) | LOC: C.RDSM 12:12 | PROVIDERS: ATTEND Physical Medicine & Rehabilitation Sports Medicine | DX: Z96.659 Presence of unspecified artificial knee joint (principal); M25.561 Pain in right knee ==

== ENCOUNTER 2017-09-05 05:03 | Inpatient (IN) | payer OTHER ==
[2017-07-27 08:21] VITALS: BMI 38.0
[2017-08-11 12:21] LABS: BASO % 0.1 %; BASO ABS # 0.01 K/uL (0-0.2); COMPLETE YES; EOS % 4.4 %; HEMATOCRIT 37.1 % (42-52); IG% 0.4 %; LYMPH ABS # 1.29 K/uL (1.2-3.4); MEAN CELL VOLUME 87.1 fL (80-100); MEAN CORPUSCULAR HEMOGLOBIN 29.3 pg (25-34); MEAN CORPUSCULAR HGB CONC 33.7 g/dl (32-36); MEAN PLATELET VOLUME 10.3 fL (7.4-10.4); MONO % 5.2 %; NEUT % 70.9 %; PLATELET COUNT 251 K/uL (130-400); RED BLOOD COUNT 4.26 M/uL (4.7-6.1); WHITE BLOOD COUNT 6.78 K/uL (4.8-10.8)
[2017-08-11 12:29] LABS: INR 0.9 (0.9-1.1); PROTHROMBIN TIME (PATIENT) 10.1 SECONDS (9.0-12.0)
[2017-08-11 12:39] LABS: BUN/CREATININE RATIO 10.2 (10-20); CREATININE 0.99 mg/dl (0.60-1.40); POTASSIUM 4.1 mmol/L (3.5-5.1)
[2017-08-11 13:14] LABS: ESTIMATED AVERAGE GLUCOSE 128 mg/dl; HA1C FLAG Normal (Normal)
--- NOTE | 2017-08-14 14:15 | History and Physical ---
History & Physical Date & Time of Service: Aug 14, 2017 at 13:56 Chief Complaint: Left Knee Osteoarthritis Primary Care Physician: Satya Daniel D.O. History of Present Illness Source: patient Mr. Hillman Is a 61-year-old male who has been treated in our office for bilateral knee pain. He states that his knee pain has been ongoing for many years. He recently has undergone a right total knee arthroplasty with Dr. Jasso on June 06, 2017. He has recovered well from that and has elected proceed with left total knee arthroplasty. He states that he has had bilateral knee pain for many years that has progressively worsened leading up to the months prior to his right knee replacement. His right knee was worse than the left but the left continues to be bothersome even in light of the new right knee replacement. He describes his pain as a dull ache which occasionally causes a sharp pain on the medial aspect of his left knee. His pain is increased with activity and weightbearing. He has decreased activities of daily living due to pain in his left knee. His pain with range of motion and limited motion due to pain in his left knee. He has occasionally had effusions in his knee that have needed to be aspirated. Aggravating activities include walking, going up and down steps. He also has rest pain and occasionally night pain. He states that he is unable to be as active as as he would like to be, he is unable to do things that he likes to do such as walk in the [place] or around his house. Prior treatments include nonsteroidal anti-inflammatory drugs , physical therapy, corticosteroid injections, viscous supplementation and joint aspirations. Due to his progressively worsening symptoms and the inability to do things that he would like to do his elected to proceed with a left total knee arthroplasty. His surgery is scheduled for September 05, [address] Jasso at the [facility]. Past Medical/Surgical History PAST MEDICAL HISTORY: 1. Gastroesophageal reflux disease 2. Hyperlipidemia 3. Type 2 diabetes mellitus 4. Hypertension 5. Obesity 6. Osteoarthritis 7. Coronary atherosclerosis 8. Sleep apnea with use of CPAP machine 9. History of prostate cancer PAST SURGICAL HISTORY: 1. Appendectomy 2. Right total knee arthroplasty June 06, [address] Jasso Family History Diabetes mellitus Hypertension His brother and father have a history of cancer. His mother has a history of heart disease as well as type 2 diabetes. Social History He is retired from the [employer]. Lives with his who is a nurse. He does not walk with any type of assistive device. Smoking Status: Former Smoker (Quit at age 28) Alcohol Use: occasionally (2 alcoholic drinks per night) Drug Use: none Marital Status: Housing status: lives with significant other Occupational Status: employed Allergies Coded Allergies: Atorvastatin (Verified Adverse Reaction, Unknown, leg cramps, 07/27/17) Rosuvastatin (Verified Adverse Reaction, Unknown, leg cramps, 07/27/17) Home Medications Scheduled Ascorbic Acid (Vitamin C), 1,000 MG PO QAM Aspirin (Aspirin Ec), 81 MG PO QPM B-Complex W/ Folic Acid (Super B Complex Maxi), 1 TAB PO QAM Cholecalciferol (Vitamin D3), 2,000 UNITS PO QAM Fluticasone Prop/Salmeterol (Advair Diskus 500/50 60 Dose), 2 PUFFS INH BID Fluticasone Propionate (Inhala (Flovent Diskus), 1 INHA NA HS Krill Oil (Krill Oil), 1 CAN PO QAM Lisinopril (Zestril), 20 MG PO QPM Metformin Hcl (Glucophage), 1,000 MG PO BID Metoprolol Succinate (Toprol Xl), 25 MG PO HS Montelukast Sodium (Singulair), 1 TAB PO QPM Multivitamin (Multivitamin), 1 TAB PO QAM Pantoprazole (Protonix), 40 MG PO QAM Pravastatin Sod (Pravastatin Sodium), 40 MG PO HS Sitagliptin (Januvia), 100 MG PO QAM Tamsulosin Hcl (Flomax), 0.4 MG PO QPM Scheduled PRN Albuterol Hfa (Ventolin Hfa), 2-4 PUFFS INH QID PRN for Wheezing Review of Systems Constitutional: No fever, No chills, No sweats, No weight loss, No fatigue Eyes: No worsening of vision, No eye pain, No redness ENT: No hearing loss, No sore throat, No tinnitus Respiratory: No cough, No sputum, No wheezing, No shortness of breath Cardiovascular: No chest pain, No edema, No palpitations Abdomen: No pain, No nausea, No vomiting, No diarrhea Musculoskeletal: + joint pain (Left knee), No muscle pain, No swelling Genitourinary - Male: No hematuria, No dysuria, No urinary frequency, No urinary urgency, No urinary hesitancy, No urinary retention, No urinary incontinence Neurologic: No memory loss, No numbness/tingling, No balance problems Psychiatric: No depression symptoms, No anxiety Endocrine: No fatigue Hematologic / Lymphatic: No abnormal bleeding/bruising, No clotting problems Integumentary: No rash, No itch Allergic / Immunologic: No environmental allergies, No frequent infections, No poor healing Physical Exam General Appearance: WD/WN, no apparent distress Head: normocephalic, atraumatic Eyes: normal inspection, PERRL, EOMI, sclerae normal ENT: normal ENT inspection, hearing grossly normal, TMs normal, pharynx normal Neck: supple, thyroid normal, no JVD, no carotid bruits, trachea midline Respiratory/Chest: chest non-tender, lungs clear, normal breath sounds, no respiratory distress, no accessory muscle use Cardiovascular: regular rate, rhythm, no edema, no gallop, no JVD, no murmur, normal peripheral pulses Abdomen/GI: normal bowel sounds, non tender, soft Back: normal inspection Extremities/Musculoskelatal: normal inspection, no calf tenderness, normal capillary refill, no pedal edema, non-tender, + pertinent finding (Left knee without effusion today. No erythema or effusion. Medial joint line tenderness with palpation. 1+ MCL laxity. Dorsalis pedis and posterior tibial pulses are 1+. Capillary fills brisk distal sensation is normal. Knee range of motion is 0/5/115. He is able to independently straight leg raises left lower extremity. Strength 5/5. Ambulation with a slight antalgic gait due to his recent right total knee replacement.) Neurologic/Psych: no motor/sensory deficits, alert, normal mood/affect, normal reflexes, oriented x 3 Skin: normal color, warm/dry, no rash Diagnostics Laboratory Results 08/11/17 11:00 Red Blood Count 4.26, Mean Corpuscular Volume 87.1, Mean Corpuscular Hemoglobin 29.3, Mean Corpuscular Hemoglobin Concent 33.7, Mean Platelet Volume 10.3, Neutrophils (%) (Auto) 70.9, Lymphocytes (%) (Auto) 19.0, Monocytes (%) (Auto) 5.2, Eosinophils (%) (Auto) 4.4, Basophils (%) (Auto) 0.1, Neutrophils # (Auto) 4.80, Lymphocytes # (Auto) 1.29, Monocytes # (Auto) 0.35, Eosinophils # (Auto) 0.30, Basophils # (Auto) 0.01 08/11/17 11:00 Test 08/11/17 11:00 White Blood Count 6.78 K/uL (4.8-10.8) Red Blood Count 4.26 M/uL (4.7-6.1) Hemoglobin 12.5 g/dL (14.0-18.0) Hematocrit 37.1 % (42-52) Mean Corpuscular Volume 87.1 fL (80-100) Mean Corpuscular Hemoglobin 29.3 pg (25-34) Mean Corpuscular Hemoglobin Concent 33.7 g/dl (32-36) Platelet Count 251 K/uL (130-400) Mean Platelet Volume 10.3 fL (7.4-10.4) Neutrophils (%) (Auto) 70.9 % Lymphocytes (%) (Auto) 19.0 % Monocytes (%) (Auto) 5.2 % Eosinophils (%) (Auto) 4.4 % Basophils (%) (Auto) 0.1 % Neutrophils # (Auto) 4.80 K/uL (1.4-6.5) Lymphocytes # (Auto) 1.29 K/uL (1.2-3.4) Monocytes # (Auto) 0.35 K/uL (0.11-0.59) Eosinophils # (Auto) 0.30 K/uL (0-0.5) Basophils # (Auto) 0.01 K/uL (0-0.2) RDW Standard Deviation 47.3 fL (36.4-46.3) RDW Coefficient of Variation 15.0 % (11.5-14.5) Immature Granulocyte % (Auto) 0.4 % Immature Granulocyte # (Auto) 0.03 K/uL (0.00-0.02) Prothrombin Time 10.1 SECONDS (9.0-12.0) Prothromb Time International Ratio 0.9 (0.9-1.1) Activated Partial Thromboplast Time 25.2 SECONDS (21.0-31.0) Partial Thromboplastin Ratio 1.0 Anion Gap 8.0 mmol/L (3-11) Est Creatinine Clear Calc Drug Dose 95.4 ml/min Estimated GFR () 94.9 Estimated GFR (Non- 81.9 BUN/Creatinine Ratio 10.2 (10-20) Estimated Average Glucose 128 mg/dl Hemoglobin A1c 6.1 % (4.5-5.6) Calcium Level 9.0 mg/dl (8.5-10.1) Diagnostic Radiology Radiology images: X-rays of his left knee show tricompartmental osteoarthritis of the left knee with osteophyte formation as well as subchondral sclerosis. No evidence of subluxation or fracture. No previous hardware in his left knee. Impression Assessment and Plan Assessment: End-stage osteoarthritis left knee Plan: Mr. Hillman will be admitted on September 05, 2017 to the [facility] to undergo an elective left total knee arthroplasty with Dr. Jasso. Risks of surgery explained to the patient include but are not limited to infection, pain, bleeding, scarring, nerve and blood vessel damage, wound problems, weakness, stiffness, incomplete relief of symptoms, hardware failure, loosening, wear, fracture, blood clots, embolisms, heart attack show good . All questions were answered and informed consent was obtained at [facility]. Postoperative course was discussed and he will be admitted for 2-3 days after surgery. We will use Lovenox postoperative really 30 mg twice a day 28 days after surgery for DVT prophylaxis. He will presurgical clearance by his family physician Dr. Satya Daniel. He will be managed medically postoperatively by the hospital service for postoperative medical management. His discharge plans or home with home health. He is also scheduled for outpatient physical therapy closer to home after home health is discontinued. All questions were answered today. He noticed call with any further problems or questions. Advanced Directives Existing Living Will: Yes Existing Power of Ibm Mainframe Developer: Yes Resuscitation Status FULL RESUSCITATION VTE Prophylaxis VTE Risk Assessment Done? Y/N: Yes Risk Level: High Given or contraindicated: Enoxaparin (Lovenox)SQ (30 mg SQ BID x 28 days), Lazarus Mtz, SCD's Additional Copies To Satya Daniel D.O.
[2017-09-05] VITALS (9 sets, daily range): BP systolic 145–165; BP diastolic 76–92; PULSE 58–82; TEMP 36.3–37.2; O2SAT 95–99; Ht 172.7 cm; Wt 110.6 kg
[~2017-09-05] VITALS: Ht 172.7 cm; Wt 110.6 kg
[~2017-09-05 05:03] MED LIST changes: -ACET-1047 PO; -CLB200 PO; -CLC100 PO; -KRIL1000 PEG; +KRIL1000 PO; -LVNIS30 SQ; -OXYSR10 PO; -PRAV20TA PO; +PRVC/40 PO; -RXC5 PO; +SITA1TAB27 PO; -SITA50TA3 PO; -ULT50X PO
[2017-09-05] MEDS ORDERED: FERR1TAB23 PO (05:36)
[2017-09-05] MEDS ORDERED: METOCLOPRAMIDE HCL 10 MG TAB PO SCH (06:00)
[2017-09-05] MEDS ORDERED: CeleBREX 200 MG CAP PO SCH (06:00)
[2017-09-05] MEDS ORDERED: LACTATED RINGER'S 1000ML IV SCH (06:00)
[2017-09-05] MEDS ORDERED: ACETAMINOPHEN 500 MG TAB PO SCH (06:00)
[2017-09-05] MEDS ORDERED: ROPIVACAINE 5MG/ML 30 ML 150 MG, BUPIVACAINE/EPINEPHR 0.5% MPF 30 ML, KETOROLAC TROMETH... INFIL SCH ×5 (06:00)
[2017-09-05] MEDS ORDERED: GABAPENTIN 300 MG CAP PO SCH (06:00)
[2017-09-05] MEDS ORDERED: OXYCODONE HCL 10 MG TABCR (OXYCONTIN) PO SCH (06:00)
[2017-09-05] MEDS ORDERED: LACTATED RINGER'S 1000ML 1,000 ML IV SCH (06:00)
[2017-09-05] MEDS ORDERED: FAMOTIDINE 20 MG TAB PO SCH (06:00)
[2017-09-05] MEDS ORDERED: CEFAZOLIN 3000MG IV PUSH 15 ML IV SCH (06:00)
[2017-09-05] MEDS ORDERED: TRAMADOL HCL 50 MG TAB PO SCH (06:00)
[2017-09-05] MEDS ORDERED: TRANEXAMIC ACID INJ 1,000 MG in SYRINGE 0 ML IV SCH (06:00)
[2017-09-05] MEDS ORDERED: LACTATED RINGER'S 1000ML 500 ML IV ONE (06:00)
[2017-09-05] MEDS ORDERED: CLONIDINE HCL 0.1 MG/24 HR TRANSDERM SYS TD SCH (06:00)
[2017-09-05] MEDS ORDERED: BUPIVACAINE 0.25% 30 ML VIAL ONE (06:22)
[2017-09-05] MEDS ORDERED: BUPIVACAINE 0.5 % 5 MG/1 ML PF 10ML VIAL ONE (06:22)
[2017-09-05] MEDS ORDERED: DEXAMETHASONE SOD INJ 4 MG/ML VIAL ONE (06:23)
[2017-09-05] MEDS ORDERED: EpINEphrine INJ 1MG/ML AMP 1 MG/ML AMP ONE (06:23)
[2017-09-05] MEDS ORDERED: MIDAZOLAM HCL 1 MG/ML 2ML VIAL ONE ×3 (06:41→08:54)
[2017-09-05] MEDS ORDERED: ORTHO JOINT ANESTHETIC ONE (06:41)
[2017-09-05] MEDS ORDERED: PROPOFOL IV EMULSION 10 MG/ML 20 ML VIAL IV ONE (06:41)
[2017-09-05] MEDS ORDERED: KETAMINE HCL INJ 50 MG/ML 10 ML VIAL ONE (06:41)
[2017-09-05] MEDS ORDERED: POVIDONE-IODINE OP SOLN 30 ML BTL ONE (06:41)
[2017-09-05] MEDS ORDERED: BACITRACIN 50000 UNIT VIAL ONE (06:41)
[2017-09-05] MEDS ORDERED: SODIUM CHLORIDE 0.9% PF 50 ML VIAL ONE (06:41)
[2017-09-05] MEDS: TRANEXAMIC ACID INJ 1,000 MG in SYRINGE 0 ML IV SCH ×2 (06:46→13:05)
[2017-09-05] MEDS ORDERED: ONDANSETRON INJ 2 MG/ML 2 ML VIAL IV PRN ×2 (08:30→10:15)
[2017-09-05] MEDS ORDERED: ATROPINE SULFATE 0.1 MG/ML 5ML SYR IV PRN (08:30)
[2017-09-05] MEDS ORDERED: FENTANYL CITRATE INJ 50 MCG/1 ML 2 ML VIAL IV PRN (08:30)
[2017-09-05] MEDS ORDERED: EpHEDrine SULFATE INJ 50 MG/ML AMP IV PRN (08:30)
--- NOTE | 2017-09-05 09:51 | DIAGNOSTIC IMAGING REPORT ---
L KNEE 1 OR 2 VIEWS ROUTINE HISTORY: 61 years-old Male LT KNEE IN OR RM 10 status post left knee total joint arthroplasty. Concern for metallic foreign body COMPARISON: None available TECHNIQUE: 2 views of the left knee FINDINGS: Postoperative changes are noted compatible with total left knee arthroplasty and patellar resurfacing. Alignment is satisfactory. No periprosthetic fracture or malalignment. No opaque foreign bodies identified. Vascular calcifications are noted. No acute fracture or dislocation. IMPRESSION: Status post left knee total joint arthroplasty and patellar resurfacing without complication identified. No metallic foreign bodies identified. The above report was generated using voice recognition software. It may contain grammatical, syntax or spelling errors. Electronically signed by: Fortunato Reddy M.D. 09/05/2017 9:50 AM Dictated Date/Time: 09/05/2017 9:49 AM
--- NOTE | 2017-09-05 09:54 | [facility] Post Operative Brief Note ---
Immediate Operative Summary Operative Date Sep 05, 2017. Pre-Operative Diagnosis Left knee end-stage osteoarthritis Post-Operative Diagnosis Left knee end-stage osteoarthritis Procedure(s) Performed Left total knee arthroplasty Surgeon Dr. Jasso Principal Statistical Scientist Surgeon(s) Michelle Boyd PA-C, anastasia patrick fellow Estimated Blood Loss 50 Findings arthritis Specimens A. Left knee bone and tissue Drains 0 Anesthesia spinal with sedation Complication(s) None Disposition Recovery Room / PACU
[2017-09-05] MEDS ORDERED: MoRPHine SULFATE 4 MG/ML 1 ML CARP\\VIAL IV PRN (10:15)
[2017-09-05] MEDS ORDERED: METOCLOPRAMIDE HCL INJ 5 MG/ML 2 ML VIAL IV PRN (10:15)
[2017-09-05] MEDS ORDERED: SOD PHOSPHATE/SOD BIPHOSPHATE ENEMA 132 ML BTL PR PRN (10:15)
[2017-09-05] MEDS ORDERED: BISACODYL 10 MG SUPP PR PRN (10:15)
[2017-09-05] MEDS ORDERED: ALBUTEROL HFA 8 GM INHALER INH PRN (10:15)
[2017-09-05] MEDS ORDERED: MAGNESIUM HYDROXIDE SUSP 30 ML UDC PO PRN (10:15)
[2017-09-05] MEDS ORDERED: ACETAMINOPHEN 325 MG TAB PO PRN (10:15)
--- NOTE | 2017-09-05 10:24 | [facility] Operative Report ---
Operative Report Operative Date Sep 05, 2017. Pre-Operative Diagnosis Left knee end-stage osteoarthritis Post-Operative Diagnosis Left knee end-stage osteoarthritis Procedure(s) Performed Left total knee arthroplasty Surgeon Dr. Jasso Brooch Maker Novelty Surgeon(s) Michelle Boyd PA-C, anastasia patrick fellow Estimated Blood Loss 50 Findings DJD left knee Specimens A. Left knee bone and tissue Drains 0 Anesthesia spinal with sedation Complication(s) None Disposition Recovery Room / PACU (stable) Indications Patient is a 61-year-old male whose been seen in our outpatient clinic for progressively worsening left knee pain. X-rays determined end-stage osteoarthritis left knee. He jennifer failed conservative treatment which has consisted of injections, viscous supplementation and physical therapy. He recently underwent a right total knee replacement and is doing well with that. He would like to proceed with an elective left total knee arthroplasty. Risks and complications were discussed. Informed consent was obtained. Description of Procedure Patient was taken to the operating room, placed under spinal sedation with peripheral nerve block of his left lower extremity. He was given 3 g of IV Ancef for surgical prophylaxis. Timeout was performed. This prepped and draped in routine sterile fashion. He was awakened and transferred to the recovery room in stable condition. I was present during the entire case, please see Dr. Jasso's operative report for further detail. I attest to the content of the Intraoperative Record and any orders documented therein. Any exceptions are noted below.
[2017-09-05] MEDS ORDERED: PHARMACY GLYCEMIC MGMT CONSULT SCH (10:26)
--- NOTE | 2017-09-05 10:59 | Anesthesiology Progress Note ---
Anesthesia Post Op Note Date & Time Sep 05, 2017 at 10:59 Vital Signs Pain Intensity: 0 Vital Signs Past 12 Hours Date Time Temp Pulse Resp B/P (MAP) Pulse Ox O2 Delivery O2 Flow Rate FiO2 09/05/17 10:44 76 15 09/05/17 10:44 77 15 95 09/05/17 10:42 138/73 09/05/17 10:39 75 15 97 09/05/17 10:39 75 15 09/05/17 10:37 36.8 09/05/17 10:37 140/69 09/05/17 10:34 80 15 98 09/05/17 10:34 73 15 09/05/17 10:33 76 18 09/05/17 10:33 76 18 97 09/05/17 10:32 148/70 09/05/17 10:28 74 16 09/05/17 10:28 74 16 100 09/05/17 10:27 139/71 09/05/17 10:26 74 16 09/05/17 10:26 73 16 100 09/05/17 10:22 145/67 09/05/17 10:21 78 15 99 09/05/17 10:21 78 15 09/05/17 10:17 131/67 09/05/17 10:16 75 17 09/05/17 10:16 74 17 100 09/05/17 10:13 144/72 09/05/17 10:11 36.4 75 16 144/72 95 Oxymask 10 09/05/17 10:11 77 94 09/05/17 10:11 77 09/05/17 05:44 36.7 75 20 165/92 95 Room Air Notes Mental Status: alert / awake / arousable, participated in evaluation Pt Amnestic to Procedure: Yes Nausea / Vomiting: adequately controlled Pain: adequately controlled Airway Patency, RR, SpO2: stable & adequate BP & HR: stable & adequate Hydration State: stable & adequate Neuraxial Anesthesia: was administered, sensory block is resolving Anesthetic Complications: no major complications apparent
--- NOTE | 2017-09-05 11:27 | OPERATIVE REPORT ---
DATE OF OPERATION: 09/05/2017 PREOPERATIVE DIAGNOSIS: Osteoarthritis, left knee. POSTOPERATIVE DIAGNOSIS: Same. PROCEDURE: Left total knee arthroplasty. SURGEON: Holger Jasso MD. SAND CASTER APPRENTICE: Galo Wisdom, fellow. SECOND SAND CASTER APPRENTICE: Michelle Boyd PA-C. ANESTHESIA: Spinal with sedation. INDICATIONS FOR PROCEDURE: The patient is a 61-year-old male status post successful contralateral knee replacement. He has symptoms refractory to nonsurgical methods of management in the left knee and wishes to have a knee replacement done. PROCEDURE IN DETAIL: Informed consent was obtained. The patient was identified as Meaghan Hillman. He identified the operative site as the left knee. I marked with my initials. A preop surgical time out was performed. A preop dose of IV antibiotics was given. He was taken to the operating room, positioned supine on the operating room table. A spinal anesthetic and sedation were administered. A tourniquet was applied to the left thigh. A bump was placed under the left calf and the left hip. The leg was prepped and draped in usual sterile fashion. DVT prophylaxis intraoperatively with foot pumps and postoperatively early mobility, mechanical devices and Lovenox. The exam under anesthesia showed range of motion 0/5/125 with intact cruciate and collateral stability. There was a small effusion. A preoperative time out was performed. The preop dose of IV antibiotics was given. The limb was exsanguinated with the Esmarch, tourniquet inflated to 250 mmHg and later to 275 mmHg. A midline longitudinal incision was made followed by a medial parapatellar arthrotomy. There was scarring possibly related to prior surgery. A medial release off the tibial plateau was performed. The retropatellar fat pad was resected and the synovial reflection in the lateral gutter was released. Soft tissue on the anterior aspect of the distal femur was resected. The cruciate ligaments were intact and were resected. The lateral compartment showed some grade 3 changes in the weightbearing area. The tibial plateau was normal. The lateral meniscus was normal. The medial meniscus was deficient and essentially the entire weightbearing area of the femoral condyle and tibia medially were devoid of any cartilage. There was grade 2 change with extensive softening of the patella. There was marginal osteophytes present throughout the knee including patella, lateral compartment, but mostly medially. The marginal osteophytes were removed. The cruciates were excised and the menisci were removed. The tibia was then subluxated. A balloon pilot hole was drilled into the proximal tibia just anterior to the lateral tibial spine and an intramedullary alignment lara was inserted. This was aligned to the medial third of the tibial tubercle and set to take 10 mm off of the lateral side which corresponded to a 2 mm cut medially. This was a 0 degree block. The alignment was confirmed with the extramedullary alignment lara bisecting the ankle joint and intersecting the second ray with slope parallel to the tibia. This cut was then made and sized to a 4. Marginal osteophytes posteromedially were removed. [employer] Nurse hole was drilled into the distal femur followed by insertion of the distal femoral cutting guide set to resect 12 mm off the distal femur and a 6 degree valgus angle of the left knee, according to preoperative templating. This cut was then made and the extension gap was a symmetric 10. Whitesides line and the transepicondylar axis were then marked out. The distal femoral sizing block was applied and it was sized to a 3, which was 1 size less than the contralateral side but the highest point on the lateral condyle did not approach the 4 meaghan on the measuring guide. The guide was set for 3 and appropriate external rotation drill holes were made. This paralleled the epicondylar axis. The size 3 anterior down cutting block was applied. The cruciate ligaments were protected and the cuts were made. The flexion gap was a symmetric 10. The box cutting guide was applied and lateralized and the box cut was made. There was some exposed medial bone due to I think the smaller size of the femoral component. There was no notching present. A loose body was removed from the back of the knee but there were no posteromedial or lateral osteophytes present. The femoral component was applied. The tibial component was then drilled and punched to receive the keel and the trial component of 10 mm thick was inserted. This showed full extension, intact stability at 0 and 90 degrees and 1+ laxity of the LCL in mid position. A clicking was noted with range of motion of the knee. It was thought that this could be the popliteus. It was identified that this was some scar tissue and located deep to the IT band in the distal lateral retinaculum. This was resected and the popping sensation was completely and 100% eliminated. This was done when the final components were inserted. There was no evidence of popliteal snapping. The patella measured 24 mm in thickness. The guide was set to preserve 16 mm of bone. The cut was made. The patella was sized to a 38. The patellar paddle was aligned distally and medially with the appropriate orientation and the lug holes were drilled. Patellar tracking was off, but when the tourniquet was let down, patellar tracked perfectly fine. One of the saw captures on the patellar clamp broke. The weld filled on the saw capture resulting in a small fragment of metal circular in nature which dropped onto the OR field. This was retrieved and everything appeared to be 100% accounted for. To be sure, at the end of the case, I took AP and lateral films read by the radiologist showing no metallic foreign body. At this time, the canals were plugged. The surfaces were irrigated with sterile saline and the back of the knee was injected with the Orthojoint mix. Drill holes were made in the medial tibial plateau where there was eburnated bone. The components were cemented in place, femur, tibia and patella using 2 bags of Simplex P cement. The knee was held in full extension with patellar caliper to let it dry. [place]i assisted flexion with the extensor mechanism closed was 120 degrees. Patellar thickness after the reconstruction was 24.5 mm. Patellar tracking was fine with the tourniquet let down and there was no further clicking. The tourniquet was let down, meticulous hemostasis was performed. The back of the knee was inspected and some pieces of cement were removed. The knee was irrigated with pulse lavage and Betadine lavage and the remainder of the joint mix was injected into the skin and subcutaneous tissues. The extensor mechanism was closed with interrupted #2 FiberWire above the equator of the patellar and interrupted #1 Vicryl below. The skin was closed in layers using 0 and 2-0 Vicryl and a soft sterile dressing was applied, 4 x 4s, Xeroform, ABD and a full length João wrap. The patient was then awakened from anesthesia without difficulty, taken to recovery room in stable condition. The resected bone was sent for specimen. There were no complications. Counts were correct at the end of the case. Blood loss was approximately 50 mL. The wound was dry at the time of wound closure. At the conclusion of the operation, I spoke to patient's and informed her of my findings. Detailed postoperative instructions were given. Components inserted were the J[employer]J PFC Sigma rotating platform knee, a 38 mm 3 peg oval dome patella, a size 10-mm thick polyethylene implant, a size 4 mobile bearing keel tibial tray and a size 3 posterior stabilized left femoral component. Trialing was performed after the cement had dried and the 10 mm thick polyethylene was found to be the best. The collateral ligaments were protected when the cuts were made. I attest to the content of the Intraoperative Record and any orders documented therein. Any exception s are noted below.
[2017-09-05] MEDS ORDERED: DEXTROSE 50% 50 ML SYR IV PRN (11:45)
[2017-09-05] MEDS ORDERED: GLUCOSE 40% GEL 15 GM TUBE PO PRN (11:45)
[2017-09-05] MEDS ORDERED: GLUCAGON FOR INJ 1 MG VIAL SQ PRN (11:45)
[2017-09-05] MEDS ORDERED: GLUCOSE 10 TABS/TUBE PO PRN (11:45)
--- NOTE | 2017-09-05 11:50 | Pharmacy Progress Note ---
Glycemic Control Intl Consult Date of Service Sep 05, 2017. Scope Glycemic Pharmacist consulted by Tracey Boyd on 09/05/17 for glycemic control and to write orders per [facility] inpatient glycemic control protocol Objective Weight (Kilograms): 110.600 Accuchecks BSG (last 24hrs): Test 09/05/17 05:33 09/05/17 10:22 Bedside Glucose 176 mg/dl (70-99) 230 mg/dl (70-99) Recent Pertinent Medications Outpatient Anti-diabetic Regimen: * metformin 1000 mg PO BID + januvia 100 mg PO daily * A1c = 6.1 % 08/11/17 Risk Factors for Insulin Resistance: * Steroids: Dex IV 4 mg pre-op * Recent Surgery: POD #0 L-TKA * Diet: T2DM Assessment & Plan ASSESSMENT: * 61 year old male sp/ L-TKA with good outpatient glycemic control. * Pt is maintained on oral agents at home. Will hold until renal function can be assessed on POD # 1 am. * Will utilize basal + bolus insulin at this time. Doses will be based on weight /stress of 2-3 and insulin requirements from May 2017 admission when pt was admitted for R-TKA. PLAN FOR INPATIENT GLYCEMIC CONTROL: * Holding outpatient oral diabetes medications - will likely resume 11/ am * Basal insulin * Lantus 28 units SQ today * Correctional Insulin * Novolog per scale ACHS + check at 00 and 04 * Goal Range: Low 110 mg/dL - High 140 mg/dL * Correction Factor: 15 mg/dL/unit * Nutritional / Prandial insulin per carb ratio of 1 unit per 5 grams CHO consumed * Please note that the plan above was derived based on current level of insulin resistance and hospital stress. These recommendations are appropriate for inpatient admission only. Plan of care upon discharge will need to be reassessed to avoid potential outpatient hypo/hyperglycemia. Thank you.
[2017-09-05] MEDS: INSULIN ASPART 100 UNITS/ML 3 ML PEN SC SCH ×3 (13:10→22:17)
[2017-09-05] MEDS: SODIUM CHLORIDE 0.9% 1000ML 1,000 ML IV SCH ×2 (13:14→22:26)
--- NOTE | 2017-09-05 15:45 | PROGRESS NOTE ---
DATE: 09/05/2017 SUBJECTIVE: The patient is resting comfortably in bed with minimal to no pain. OBJECTIVE: He is afebrile. His vital signs are stable. Blood sugars are running 230 and 252. Pharmacy has been consulted for glycemic control. Dorsalis pedis is 1+. Foot is warm. He has 4+5-/5 plantarflexion strength of the ankle and toes. The top of the foot is numb. He cannot extend the foot or toes. He has intact and slightly dulled sensation on the bottom of the foot. Block is likely working. Dressing shows some spotting with blood and is reinforced. Radiographs of the knee showed no metallic foreign body and there is a well-positioned total knee arthroplasty without complication. IMPRESSION: Left knee replacement. PLAN: Findings are discussed with the patient and his . He will continue the rehab per the total knee protocol and per the knee replacement pathway. I did discuss with him the scarring in the knee and soft tissue impingement that was addressed. I also discussed with him the breakage of the patellar saw capture and the intraoperative x-ray. DEON
[2017-09-05] MEDS: KETOROLAC TROMETHAMINE 30 MG/ML VIAL IV. SCH ×2 (16:10→22:19)
[2017-09-05] MEDS: OXYCODONE HCL IR 5 MG TAB (IMMEDIATE RELEASE) PO PRN ×2 (16:50→22:30)
[2017-09-05] MEDS ORDERED: LANTUS PER UNIT CHARGE SQ ONE ×2 (17:45)
[2017-09-05] MEDS: CEFAZOLIN IV 3,000 MG in SYRINGE 0 ML IV SCH (18:24)
[2017-09-05] MEDS: ASPIRIN 81 MG ECTAB PO SCH (22:11)
[2017-09-05] MEDS: FLUTICASONE/SALMETEROL (ADVAIR) 500/50 INH 14 PUFF INH SCH (22:12)
[2017-09-05] MEDS: FLUTICASONE PROPIONATE NA SPR 16 GM BTL SCH (22:12)
[2017-09-05] MEDS: ENOXAPARIN 30 MG/0.3 ML SYR SQ SCH (22:13)
[2017-09-05] MEDS: DOCUSATE SODIUM 100 MG CAP PO SCH (22:14)
[2017-09-05] MEDS: LISINOPRIL 20 MG TAB PO SCH (22:14)
[2017-09-05] MEDS: TAMSULOSIN HCL 0.4 MG CAP PO SCH (22:14)
[2017-09-05] MEDS: METOPROLOL SUCC 25MG EXT REL TAB PO SCH (22:15)
[2017-09-05] MEDS: MONTELUKAST SOD 10 MG TAB PO SCH (22:18)
[2017-09-05] MEDS: PRAVASTATIN SOD 40 MG TAB PO SCH (22:18)
[2017-09-06] VITALS (7 sets, daily range): BP systolic 118–160; BP diastolic 62–76; PULSE 62–84; TEMP 36.5–36.6; O2SAT 93–97
[2017-09-06] MEDS ORDERED: INSULIN ASPART 100 UNITS/ML 3 ML PEN SC SCH
[2017-09-06] MEDS: INSULIN ASPART 100 UNITS/ML 3 ML PEN SC SCH ×7 (00:04→23:54)
[2017-09-06] MEDS: CEFAZOLIN IV 3,000 MG in SYRINGE 0 ML IV SCH (02:02)
[2017-09-06] MEDS: KETOROLAC TROMETHAMINE 30 MG/ML VIAL IV. SCH ×2 (04:01→09:23)
[2017-09-06 06:38] LABS: HEMATOCRIT 28.6 % (42-52); MEAN CELL VOLUME 84.4 fL (80-100); MEAN CORPUSCULAR HEMOGLOBIN 29.2 pg (25-34); MEAN CORPUSCULAR HGB CONC 34.6 g/dl (32-36); MEAN PLATELET VOLUME 10.1 fL (7.4-10.4); PLATELET COUNT 257 K/uL (130-400); RED BLOOD COUNT 3.39 M/uL (4.7-6.1); WHITE BLOOD COUNT 12.27 K/uL (4.8-10.8)
[2017-09-06 07:11] LABS: BUN/CREATININE RATIO 16.6 (10-20); CALCIUM 7.8 mg/dl (8.5-10.1); CREATININE 0.84 mg/dl (0.60-1.40); POTASSIUM 3.6 mmol/L (3.5-5.1)
[2017-09-06] MEDS ORDERED: LANTUS PER UNIT CHARGE SQ ONE ×2 (08:00→19:45)
[2017-09-06] MEDS ORDERED: MULTIVITAMIN TAB PO SCH (09:00)
[2017-09-06] MEDS ORDERED: NON-FORMULARY MEDICATION (Krill Oil 1 CAP) PO SCH (09:00)
[2017-09-06] MEDS: PANTOprazole SOD 40 MG TAB PO SCH (09:09)
[2017-09-06] MEDS: DOCUSATE SODIUM 100 MG CAP PO SCH ×2 (09:09→21:33)
[2017-09-06] MEDS: SODIUM CHLORIDE 0.9% 1000ML 1,000 ML IV SCH (09:09)
[2017-09-06] MEDS: MULTIVITAMIN TAB PO SCH (09:09)
[2017-09-06] MEDS: ASCORBIC ACID 500 MG TAB PO SCH (09:10)
[2017-09-06] MEDS: CHOLECALCIFEROL 1000 INTER.UNIT TAB PO SCH (09:10)
[2017-09-06] MEDS: FLUTICASONE/SALMETEROL (ADVAIR) 500/50 INH 14 PUFF INH SCH ×2 (09:13→21:30)
[2017-09-06] MEDS: ENOXAPARIN 30 MG/0.3 ML SYR SQ SCH ×2 (09:14→21:37)
--- NOTE | 2017-09-06 09:19 | Orthopedic Progress Note ---
Orthopedic Progress Note Date of Service Sep 06, 2017. Subjective Post OP Day: 1 Reports: feeling well, pain controlled w PO medications, Denies: complaints, chest pain, SOB, nausea / vomiting, light headedness, calf pain Additional Notes: States doing much better with this knee than the last time. Pain controlled. Tolerating regular diet. Objective calves soft nontender, N/V intact, capillary refill less than 2 sec., incision C /D/I, A&O x3, toes mobile Left knee dressings reinforced 2 yesterday. Dressings saturated with blood today. Dressings changed at bedside and new sterile dressings were applied. Incision is clean dry and intact, cristina are retained. There is no active drainage from the incision. Appears that the bleeding came from the distal aspect of the incision. Mild effusion of left knee. No calf tenderness. Mild distal edema. Distal pulses 1+. He is able to independently straight leg raise but is unable to dorsiflex his left foot today. Distal sensation is intact to light touch. He moves his toes well. Date Time Temp Pulse Resp B/P (MAP) Pulse Ox O2 Delivery O2 Flow Rate FiO2 09/06/17 08:11 96 Room Air 09/06/17 07:53 36.6 67 16 142/62 (88) 96 Room Air 09/06/17 03:58 36.5 62 18 118/70 (86) 97 BiPAP 09/06/17 00:08 CPAP 09/05/17 22:50 36.3 82 17 154/78 (103) 96 CPAP 09/05/17 20:00 36.3 69 18 96 Room Air 09/05/17 16:10 Room Air 09/05/17 15:11 36.8 58 18 159/82 (107) 98 Room Air 09/05/17 14:05 74 16 161/79 (106) 97 09/05/17 13:04 36.7 72 17 151/76 (101) 99 Nasal Cannula 4.0 09/05/17 12:00 71 16 155/87 (109) 98 09/05/17 11:31 36.5 75 18 145/86 (105) 98 Nasal Cannula 2.0 09/05/17 11:00 37.2 73 16 150/81 (104) 98 Nasal Cannula 2.0 09/05/17 11:00 98 Nasal Cannula 2.0 09/05/17 11:00 98 Nasal Cannula 2.0 09/05/17 10:44 76 15 09/05/17 10:44 77 15 95 09/05/17 10:42 138/73 09/05/17 10:39 75 15 97 09/05/17 10:39 75 15 09/05/17 10:37 36.8 09/05/17 10:37 140/69 09/05/17 10:34 80 15 98 09/05/17 10:34 73 15 09/05/17 10:33 76 18 09/05/17 10:33 76 18 97 09/05/17 10:32 148/70 09/05/17 10:28 74 16 09/05/17 10:28 74 16 100 09/05/17 10:27 139/71 09/05/17 10:26 74 16 09/05/17 10:26 73 16 100 09/05/17 10:22 145/67 09/05/17 10:21 78 15 99 09/05/17 10:21 78 15 09/05/17 10:17 131/67 09/05/17 10:16 75 17 09/05/17 10:16 74 17 100 09/05/17 10:13 144/72 09/05/17 10:11 36.4 75 16 144/72 95 Oxymask 10 09/05/17 10:11 77 94 09/05/17 10:11 77 Laboratory Results 24 Hours: Test 09/06/17 05:50 Hematocrit 28.6 % Hemoglobin 9.9 g/dL Assessment & Plan Assessment: POD 1 - left total knee arthroplasty Plan: Continue out of bed/physical therapy as tolerated Weight-bear as tolerated left lower extremity Teds and foot pumps bilateral lower extremities for DVT prophylaxis Lovenox 30 mg twice a day for 28 days postoperatively for DVT prophylaxis Regular diet as ordered Dressings changed today at bedside due to saturation H&H stable-we will continue to monitor. staff services manager for discharge needs-patient would like to go home with home health. Ice to left knee as needed for pain and swelling Encouraged exercises while in bed. All questions were answered today. Findings will be discussed with Dr. Jasso Plan for discharge to his home tomorrow with home health. Discharge Planning Discharge Planning: home with home health
[2017-09-06] MEDS ORDERED: ACET-1047 PO (09:32)
[2017-09-06] MEDS ORDERED: CLC100 PO (09:32)
--- NOTE | 2017-09-06 09:40 | Discharge Instructions ---
Discharge Instructions Date of Service Sep 06, 2017. Admission Reason for Admission: Left Knee Osteoarthritis Discharge Discharge Diagnosis / Problem: Left knee osteoarthritis Discharge Goals Goal(s): Decrease discomfort, Improve function, Increase independence Activity Recommendations Activity Limitations: per Instructions/Follow-up section Shower/Bathe: may shower/bathe in 3 days Driving or Machine Use: No driving until instructed by physician Weightbearing Status: Left weightbearing (as tolerated), Right weightbearing ( as tolerated) . Instructions / Follow-Up Instructions / Follow-Up New Medicine: * You will likely be taking one or more of these medications: 1. Lovenox - You will be on Lovenox for 28 days after surgery to prevent blood clots. Aspirin, 81 mg is OK To take while on Lovenox. We will ask you to obtain a CBC approximately one week after surgery. After Lovenox completed, please start Aspirin 325mg twice daily x 2 weeks or until seen by Dr. Jasso. Take Aspirin with food. 2. Percocet - Take, as directed, when you need it, every four to six hours to control your pain. 3. Tramadol - Take, as directed, When you need it, every 4-6 hours to control your pain 4. Colace & Senokot - Take to prevent constipation which can be caused by narcotics. These can be bought [id number] at the pharmacy * The most common side effects of pain medicine and iron are nausea and constipation. If nausea or constipation is too much of a problem or if you have any questions about your new medicines or doses, call [facility] at . We will try to help you manage these issues. VERY IMPORTANT TO READ AND REVIEW" Blood Clots and Blood Thinning Medicine: * You are given Lovenox during the immediate post-operative period to lessen the risk of blood clots forming in your legs and/or lungs. Lovenox is usually given for 28 days after surgery. Physical Therapy: * Do your physical therapy at home. These are the exercises you learned while in the hospital (quad sets, leg raises, calf pumps, gluteal squeezes, knee bending, and heel props.) You should do these exercises 3-4 times per day. * You will either go to inpatient rehab ([facility]), home with Home Therapy and nursing or home with outpatient rehab. You should do rehab with the therapist 2-3 times per week. You should do therapy on your own daily. * You may bear full weight on your leg with crutches or walker unless otherwise advised. Home Exercise: * You were shown a series of exercises (heel props, heel slides, etc.) in the hospital. Do these exercises three to four times each day including the exercises you were shown in physical therapy. Walking: * You may be up for short periods of time. Standing and walking for 1-2 hours at a time is usually okay. You should not stand or walk for excessive periods of time as this may cause increased pain and swelling. SELF CARE INSTRUCTIONS AFTER TOTAL KNEE REPLACEMENT A. You may need to continue a physical therapy program after discharge from the hospital. There are several options available to you. Your doctor will assist you in selecting the best one for you. 1. An out-patient facility 2 to 3 times a week for therapy or home therapy. 2. Continue working on all exercises taught to you in the hospital. Your goals should be to increase bending of your knee to 90 degrees and beyond and to fully straighten your knee. B. Your therapist will notify you when you are able to progress from a walker to a cane. C. Wear TEDS as much as possible.~ They may be removed at night for laundering. D. Do not place a pillow behind your knee when resting. A pillow at your ankle is okay. E. Ice your knee 15-20 minutes every 2-3 hours and elevate it above the level of your heart. F. You may shower on the fourth day after surgery using regular soap and water. Do not submerge until the wound is completely healed (approximately 2 weeks ). Until the fourth day after surgery, cover the incision/bandage with a bag or plastic wrap. G. Anyone who is touching your surgical incision area should wash their hands and wear gloves. H. Keep your incision covered with gauze pads under the LOBO hose until it is dry. I. You will have a Silverlon dressing on her left knee incision. Keep this intact at all times. You may shower with the dressing on. It typically stays on for about 7 days. If it falls off and her incision is clean and dry you may cover with a gauze pad or keep open to air. VERY IMPORTANT TO READ AND REVIEW A. YOU WILL BE GIVEN AN ORDER AT DISCHARGE FOR PT/INR (BLOOD WORK). PLEASE HAVE THIS DONE INSTRUCTED. PLEASE CALL OUR OFFICE AFTER YOUR BLOODWORK IS COMPLETE SO WE CAN TRACK YOUR RESULTS. IF YOU ARE GOING TO OUTPATIENT PHYSICAL THERAPY, YOU WILL NEED TO GO TO OUTPATIENT TESTING TO HAVE IT DRAWN. B. There are a few signs you need to watch for after you are home. Call [facility] if you notice any of the followin. Increased severe knee pain. Some pain is expected especially when you exercise. 2. Increased swelling in your leg or knee; pain or swelling of the calf muscle in either lower leg. 3. Any fluid drainage from the incision. 4. Shortness of breath or chest pain. 5. Numbness and tingling in the surgical extremity C. Please call [facility] at if you have any concerns or questions about your operation or recovery. The doctor or his nurse will return your call promptly. D. Do not have any elective dental work or other elective procedures done for 6 weeks after your knee replacement. When you have any invasive procedure (dental cleaning, extraction, colonoscopy etc) performed, you will need to take antibiotics to prevent infection from developing in your artificial joint. Tell your other health care providers you have an artificial joint. My office will supply you with further information and the antibiotics. Call your doctor if: * Temperature above 101 degrees F. * Pain not relieved by pain medicine ordered. * Increased drainage or redness from incision. * Notify your doctor with any questions or concerns. Follow-up Visit: You will follow-up with Dr. Jasso 10-14 days after surgery. The office number is . * You have follow up scheduled with Dr. Jasso on September 18, 2017 11:45 AM. Please call [phone] if you need to change the appointment. Current Hospital Diet Patient's current hospital diet: Diabetes Type 2 Diet Discharge Diet Recommended Diet: Regular Diet Procedures Procedures Performed: Left total knee arthroplasty Pending Studies Studies pending at discharge: no Laboratory Results Hemoglobin A1c Test 08/11/17 11:00 Range/Units Estimated Average Glucose 128 mg/dl Hemoglobin A1c 6.1 H 4.5-5.6 % Medical Emergencies . Who to Call and When: Medical Emergencies: If at any time you feel your situation is an emergency, please call 911 immediately. . Non-Emergent Contact Non-Emergency issues call your: Surgeon Call Non-Emergent contact if: temperature is above 101.5, your pain is not controlled, your pain is worsening, your pain is concerning you, wound has increased drainage, wound has increased redness, wound has increased pain, you have any medication questions . "Provider Documentation" section prepared by Michelle Boyd. . VTE Core Measure Inpt VTE Proph given/why not?: Enoxaparin (Lovenox)SQ (30 mg SQ BID x 28 days) , T.EEdilma Mtz, SCD's [place] Drug Monitoring Program Search Results: patient reviewed within database, no issues identified
[2017-09-06] MEDS: SITAGLIPTIN 100 MG TAB PO SCH (10:57)
[2017-09-06] MEDS: METFORMIN HCL 500 MG TAB PO SCH ×2 (10:57→17:57)
--- NOTE | 2017-09-06 11:06 | Pharmacy Progress Note ---
Pharmacy Glycemic Short Note 2 Date of Service Sep 06, 2017. OUTPATIENT ANTIDIABETIC REGIMEN: * Metformin 1000 mg PO BID + Januvia 100 mg PO daily * A1c = 6.1 % 08/11/17 ASSESSMENT: * 61 yr old T2DM male s/p L-TKA on 09/05. * Renal function at baseline and pt tolerating oral diet - resume oral anti- diabetic agents. * Majority of BSGs > 200 mg/dL since surgery - continue aggressive correctional insulin (wt/stress 3). * Fasting BSG elevated - pt will be given another dose of Lantus this morning based on wt/stress 3. PLAN FOR INPATIENT GLYCEMIC CONTROL: * Resume Metformin and Januvia * Basal insulin * Lantus 28 units SQ this morning * Lantus 10-19 units SQ tonight (10 units if BSG < 150, 19 units if BSG > 150) * Bolus insulin - tighten CR * NovoLog per scale ACHS + 00 AND 04 * Goal Range: Low 110 mg/dL - High 140 mg/dL * Correction Factor: 15 mg/dL/unit * Nutritional / Prandial insulin per carb ratio of 1 unit per 4 grams CHO consumed PLAN FOR DISCHARGE: * Continue current outpatient regimen. Good glycemic control evidenced by A1c of 6.1%.
[2017-09-06] MEDS: OXYCODONE HCL IR 5 MG TAB (IMMEDIATE RELEASE) PO PRN ×2 (11:43→21:50)
[2017-09-06] MEDS: FERROUS SULFATE 325 MG TAB PO SCH (12:56)
--- NOTE | 2017-09-06 13:08 | Anesthesiology Progress Note ---
Anesthesia Post Op Note Date & Time Sep 06, 2017 at 13:08 Vital Signs Pain Intensity: 6.0 Vital Signs Past 12 Hours Date Time Temp Pulse Resp B/P (MAP) Pulse Ox O2 Delivery O2 Flow Rate FiO2 09/06/17 11:39 36.5 82 18 160/74 (102) 96 Room Air 09/06/17 08:11 96 Room Air 09/06/17 07:55 Room Air 09/06/17 07:53 36.6 67 16 142/62 (88) 96 Room Air 09/06/17 03:58 36.5 62 18 118/70 (86) 97 BiPAP Notes Mental Status: alert / awake / arousable, participated in evaluation Pt Amnestic to Procedure: Yes Nausea / Vomiting: adequately controlled Pain: adequately controlled Airway Patency, RR, SpO2: stable & adequate BP & HR: stable & adequate Hydration State: stable & adequate Neuraxial Anesthesia: was administered, sensory block resolved Anesthetic Complications: no major complications apparent
[2017-09-06] MEDS: TRAMADOL HCL 50 MG TAB PO PRN ×2 (14:31→23:53)
--- NOTE | 2017-09-06 18:36 | PROGRESS NOTE ---
DATE: 09/06/2017 Pain has been very well controlled and he has done well with PT. He is afebrile. His vital signs are stable. His urine output is adequate. White count was elevated, likely secondary to stress and steroids. His hematocrit is 29, platelet count 257, blood sugars are in a much more acceptable range today. He has normal neurovascular function, 1+ dorsalis pedis pulse and 5/5 motor function with normal sensation. His dressing was changed and he has had no further bleeding. He is doing well status post his left knee replacement. He will continue treatment per the protocol. If doing well we will consider discharge tomorrow. I reviewed instructions with him.
[2017-09-06] MEDS ORDERED: NURSING VERBAL MED ORDER ONE (19:00)
[2017-09-06] MEDS: FLUTICASONE PROPIONATE NA SPR 16 GM BTL SCH (21:31)
[2017-09-06] MEDS: CeleBREX 200 MG CAP PO SCH (21:31)
[2017-09-06] MEDS: ASPIRIN 81 MG ECTAB PO SCH (21:33)
[2017-09-06] MEDS: PRAVASTATIN SOD 40 MG TAB PO SCH (21:34)
[2017-09-06] MEDS: TAMSULOSIN HCL 0.4 MG CAP PO SCH (21:34)
[2017-09-06] MEDS: LISINOPRIL 20 MG TAB PO SCH (21:35)
[2017-09-06] MEDS: MONTELUKAST SOD 10 MG TAB PO SCH (21:35)
[2017-09-06] MEDS: METOPROLOL SUCC 25MG EXT REL TAB PO SCH (21:36)
[2017-09-07] MEDS ORDERED: INSULIN ASPART 100 UNITS/ML 3 ML PEN SC SCH (02:00)
[2017-09-07] MEDS: INSULIN ASPART 100 UNITS/ML 3 ML PEN SC SCH ×2 (04:00→07:55)
[2017-09-07] MEDS: TRAMADOL HCL 50 MG TAB PO PRN ×2 (06:11→11:36)
[2017-09-07 06:30] LABS: PARTIAL THROMBOPLASTIN RATIO 1.1
[2017-09-07 06:55] VITALS: BP 133/79; PULSE 83; TEMP 36.7; O2SAT 94
[2017-09-07] MEDS ORDERED: ULT50X PO (07:24)
[2017-09-07] MEDS ORDERED: OXYC-57 PO (07:24)
[2017-09-07] MEDS ORDERED: CLB200 PO (07:24)
[2017-09-07] MEDS ORDERED: LVNIS30 SQ (07:24)
[2017-09-07] MEDS: ASCORBIC ACID 500 MG TAB PO SCH (07:50)
[2017-09-07] MEDS: CeleBREX 200 MG CAP PO SCH (07:50)
[2017-09-07] MEDS: METFORMIN HCL 500 MG TAB PO SCH (07:51)
[2017-09-07] MEDS: PANTOprazole SOD 40 MG TAB PO SCH (07:51)
[2017-09-07] MEDS: MULTIVITAMIN TAB PO SCH (07:51)
[2017-09-07] MEDS: CHOLECALCIFEROL 1000 INTER.UNIT TAB PO SCH (07:51)
[2017-09-07] MEDS: DOCUSATE SODIUM 100 MG CAP PO SCH (07:51)
[2017-09-07] MEDS: FERROUS SULFATE 325 MG TAB PO SCH (07:51)
[2017-09-07] MEDS: FLUTICASONE/SALMETEROL (ADVAIR) 500/50 INH 14 PUFF INH SCH (07:52)
[2017-09-07] MEDS: ENOXAPARIN 30 MG/0.3 ML SYR SQ SCH (07:53)
--- NOTE | 2017-09-07 08:02 | Orthopedic Progress Note ---
Orthopedic Progress Note Date of Service Sep 07, 2017. Subjective Post OP Day: 2 Reports: feeling well, pain controlled w PO medications, Denies: complaints, chest pain, SOB, nausea / vomiting, light headedness, calf pain Additional Notes: Mild increased pain from yesterday, but still feels up to going home. Objective calves soft nontender, N/V intact, capillary refill less than 2 sec., incision C /D/I, A&O x3, toes mobile Dressing with mild amount of bloody drainage, no active bleeding. Dressing removed and Silverlon dressing applied. Distal pulses 1+, full ankle ROM this AM. Date Time Temp Pulse Resp B/P (MAP) Pulse Ox O2 Delivery O2 Flow Rate FiO2 09/07/17 06:55 36.7 83 18 133/79 (97) 94 Room Air 09/06/17 23:57 CPAP 09/06/17 23:45 36.6 83 16 143/75 (97) 97 CPAP 09/06/17 21:24 84 152/76 (101) 09/06/17 15:50 Room Air 09/06/17 15:48 36.6 72 17 121/71 (88) 93 Room Air 09/06/17 11:39 36.5 82 18 160/74 (102) 96 Room Air 09/06/17 08:11 96 Room Air Assessment & Plan Assessment: POD 2 - left total knee arthroplasty Acute blood loss anemia Plan: Continue out of bed/physical therapy as tolerated Weight-bear as tolerated left lower extremity - D/C immobilizer left knee Teds and foot pumps bilateral lower extremities for DVT prophylaxis Lovenox 30 mg twice a day for 28 days postoperatively for DVT prophylaxis Regular diet as ordered H&H stable inpatient services rn for discharge needs Ice to left knee as needed for pain and swelling Encouraged exercises while in bed. All questions were answered today. Findings will be discussed with Dr. Jasso Plan for discharge to his home today after AM PT with home health. Discharge Planning Discharge Planning: home with home health Pain Management: Percocet, Celebrex, Ultram DVT Prophylaxis: TEDs, SCDs, Lovenox Therapy: Physical Therapy
[2017-09-07] MEDS: OXYCODONE HCL IR 5 MG TAB (IMMEDIATE RELEASE) PO PRN (08:06)
[2017-09-07] MEDS: SITAGLIPTIN 100 MG TAB PO SCH (08:31)
--- NOTE | 2017-09-07 10:33 | Discharge Summary ---
Discharge Summary Date of Service Sep 07, 2017. Discharge Summary Admission Date: Sep 05, 2017 at 06:00 Discharge Date: Sep 07, 2017 Discharge Disposition: Home with services Principal Diagnosis: Degenerative joint disease left knee Secondary Diagnoses/Problems: Diabetes mellitus, sleep apnea Procedures: Left total knee arthroplasty on 09/05/2017 Pending Studies/Follow-Up: Please follow-up as scheduled with Dr. Jasso on 09/18/2017. Please call [phone] with any questions or need to reschedule appointment. Medication Reconciliation New Medications: Oxycodone/Acetaminophen 5MG/325MG (Percocet 5MG/325MG) Tab 1-2 TABLETS PO Q4H PRN for Pain, #30 TAB Acetaminophen (Mapap) 325 Mg Tab 650 MG PO Q6H PRN for PAIN/TEMP GREATER THAN 38 C, #30 TAB Celecoxib (Celebrex) 200 Mg Cap 200 MG PO BID for 4 Days, #8 CAP 0 Refills Docusate Sodium (Docusate Sodium) 100 Mg Cap 100 MG PO BID for 30 Days, #60 CAP Enoxaparin (Lovenox) 30 Mg/0.3 Ml Inj 30 MG SQ Q12@0900,2100 for 26 Days, #52 SYR 0 Refills Tramadol HCl (Tramadol HCl) 50 Mg Tab 50-100 MG PO Q4H PRN for Pain, #30 TAB 0 Refills Continued Medications: Albuterol Hfa (Ventolin Hfa) 200 Puffs/81466 Mcg Aers 2-4 PUFFS INH QID PRN for Wheezing Ascorbic Acid (Vitamin C) 1,000 Mg Tab 1000 MG PO QAM Aspirin (Aspirin Ec) 81 Mg Tab 81 MG PO QPM B-Complex W/ Folic Acid (Super B Complex Maxi) 1 Tab Tab 1 TAB PO QAM Cholecalciferol (Vitamin D3) 2,000 Unit Cap 2000 UNITS PO QAM Ferrous Sulfate (Iron) 325 Mg Tab Unknown Dose PO DAILY Fluticasone Prop/Salmeterol (Advair Diskus 500/50 60 Dose) 1 Ea Aerp 2 PUFFS INH BID Fluticasone Propionate (Inhala (Flovent Diskus) 100 Mcg/Blist Aer 1 INHA NA HS Krill Oil (Krill Oil) 1 Cap Cap 1 CAP PO QAM Lisinopril (Zestril) 20 Mg Tab 20 MG PO QPM, TAB Metformin Hcl (Glucophage) 1,000 Mg Tab 1000 MG PO BID, TAB Metoprolol Succinate (Toprol Xl) 25 Mg Tabcr 25 MG PO HS for 30 Days Montelukast Sodium (Singulair) 10 Mg Tab 1 TAB PO QPM Multivitamin (Multivitamin) Tab 1 TAB PO QAM, TAB Pantoprazole (Protonix) 40 Mg Tab 40 MG PO QAM Pravastatin Sod (Pravastatin Sodium) 40 Mg Tab 40 MG PO HS Sitagliptin (Januvia) 100 Mg Tab 100 MG PO QAM, TAB Tamsulosin Hcl (Flomax) 0.4 Mg Cap 0.4 MG PO QPM Admission Information HPI (per Admitting provider): Mr. Hlilman Is a 61-year-old male who has been treated in our office for bilateral knee pain. He states that his knee pain has been ongoing for many years. He recently has undergone a right total knee arthroplasty with Dr. Jasso on June 06, 2017. He has recovered well from that and has elected proceed with left total knee arthroplasty. He states that he has had bilateral knee pain for many years that has progressively worsened leading up to the months prior to his right knee replacement. His right knee was worse than the left but the left continues to be bothersome even in light of the new right knee replacement. He describes his pain as a dull ache which occasionally causes a sharp pain on the medial aspect of his left knee. His pain is increased with activity and weightbearing. He has decreased activities of daily living due to pain in his left knee. His pain with range of motion and limited motion due to pain in his left knee. He has occasionally had effusions in his knee that have needed to be aspirated. Aggravating activities include walking, going up and down steps. He also has rest pain and occasionally night pain. He states that he is unable to be as active as as he would like to be, he is unable to do things that he likes to do such as walk in the [place] or around his house. Prior treatments include nonsteroidal anti-inflammatory drugs , physical therapy, corticosteroid injections, viscous supplementation and joint aspirations. Due to his progressively worsening symptoms and the inability to do things that he would like to do his elected to proceed with a left total knee arthroplasty. His surgery is scheduled for September 05, [address] Jasso at the [facility]. Physical Exam (per Admitting): General Appearance: WD/WN, no apparent distress Head: normocephalic, atraumatic Eyes: normal inspection, PERRL, EOMI, sclerae normal ENT: normal ENT inspection, hearing grossly normal, TMs normal, pharynx normal Neck: supple, thyroid normal, no JVD, no carotid bruits, trachea midline Respiratory/Chest: chest non-tender, lungs clear, normal breath sounds, no respiratory distress, no accessory muscle use Cardiovascular: regular rate, rhythm, no edema, no gallop, no JVD, no murmur , normal peripheral pulses Abdomen/GI: normal bowel sounds, non tender, soft Back: normal inspection Extremities/Musculoskelatal: normal inspection, no calf tenderness, normal capillary refill, no pedal edema, non-tender, + pertinent finding (Left knee without effusion today. No erythema or effusion. Medial joint line tenderness with palpation. 1+ MCL laxity. Dorsalis pedis and posterior tibial pulses are 1+. Capillary fills brisk distal sensation is normal. Knee range of motion is 0/5/115. He is able to independently straight leg raises left lower extremity. Strength 5/5. Ambulation with a slight antalgic gait due to his recent right total knee replacement.) Neurologic/Psych: no motor/sensory deficits, alert, normal mood/affect, normal reflexes, oriented x 3 Skin: normal color, warm/dry, no rash Hospital Course Patient is a 61-year-old male who was admitted after undergoing a right total knee arthroplasty by Dr. Jasso on 09/05/2017. Surgery was done with spinal anesthesia in peripheral nerve block. He tolerated the procedure well without any intraoperative complications. He was given 3 g of IV Ancef for surgical prophylaxis. His Ancef was continued for 24 hours after surgery. He had intraoperative x-rays of his right knee to rule out foreign body during surgery so no postoperative x-rays were taken. Intraoperative x-ray showed a stable right knee prosthesis. LOBO stockings, foot pumps and Lovenox 30 mg twice a day was started for DVT prophylaxis. Postoperatively he was allowed out of bed, weightbearing as tolerated on his left lower extremity with knee immobilizer in the assistance of a walker. Physical therapy was consulted and evaluated him and he did well out of bed. consulting services project manager and case management followed him for disposition needs. He requested discharge to home with home health and home physical therapy. Arrangements were made. He did develop some postoperative bleeding through his dressings on day of surgery. His dressings were reinforced. His dressings were changed on postoperative day 1 and new dressings were applied. He had very minimal drainage after that. On postoperative day 2 was Silverlon dressing was applied to his knee incision. There is no active draining at that time. Did develop postoperative acute blood loss anemia but no transfusions were necessary during his admission. His pain was well-controlled with oral medication. On postoperative day 2 was determined that he would be safe for discharge and was discharged to his home in stable condition. Discharge instructions were reviewed and provided. Prescriptions for Percocet, Celebrex, tramadol, and Lovenox were provided to the patient. Is also instructed to obtain a CBC on Monday. All questions were answered. Total time spent on discharge = This includes examination of the patient, discharge planning, medication reconciliation, and communication with other providers. Discharge Instructions Discharge Instructions Date of Service Sep 06, 2017. Admission Reason for Admission: Left Knee Osteoarthritis Discharge Discharge Diagnosis / Problem: Left knee osteoarthritis Discharge Goals Goal(s): Decrease discomfort, Improve function, Increase independence Activity Recommendations Activity Limitations: per Instructions/Follow-up section Shower/Bathe: may shower/bathe in 3 days Driving or Machine Use: No driving until instructed by physician Weightbearing Status: Left weightbearing (as tolerated), Right weightbearing ( as tolerated) . Instructions / Follow-Up Instructions / Follow-Up New Medicine: * You will likely be taking one or more of these medications: 1. Lovenox - You will be on Lovenox for 28 days after surgery to prevent blood clots. Aspirin, 81 mg is OK To take while on Lovenox. We will ask you to obtain a CBC approximately one week after surgery. After Lovenox completed, please start Aspirin 325mg twice daily x 2 weeks or until seen by Dr. Jasso. Take Aspirin with food. 2. Percocet - Take, as directed, when you need it, every four to six hours to control your pain. 3. Tramadol - Take, as directed, When you need it, every 4-6 hours to control your pain 4. Colace & Senokot - Take to prevent constipation which can be caused by narcotics. These can be bought [id number] at the pharmacy * The most common side effects of pain medicine and iron are nausea and constipation. If nausea or constipation is too much of a problem or if you have any questions about your new medicines or doses, call [facility] at . We will try to help you manage these issues. VERY IMPORTANT TO READ AND REVIEW" Blood Clots and Blood Thinning Medicine: * You are given Lovenox during the immediate post-operative period to lessen the risk of blood clots forming in your legs and/or lungs. Lovenox is usually given for 28 days after surgery. Physical Therapy: * Do your physical therapy at home. These are the exercises you learned while in the hospital (quad sets, leg raises, calf pumps, gluteal squeezes, knee bending, and heel props.) You should do these exercises 3-4 times per day. * You will either go to inpatient rehab ([facility]), home with Home Therapy and nursing or home with outpatient rehab. You should do rehab with the therapist 2-3 times per week. You should do therapy on your own daily. * You may bear full weight on your leg with crutches or walker unless otherwise advised. Home Exercise: * You were shown a series of exercises (heel props, heel slides, etc.) in the hospital. Do these exercises three to four times each day including the exercises you were shown in physical therapy. Walking: * You may be up for short periods of time. Standing and walking for 1-2 hours at a time is usually okay. You should not stand or walk for excessive periods of time as this may cause increased pain and swelling. SELF CARE INSTRUCTIONS AFTER TOTAL KNEE REPLACEMENT A. You may need to continue a physical therapy program after discharge from the hospital. There are several options available to you. Your doctor will assist you in selecting the best one for you. 1. An out-patient facility 2 to 3 times a week for therapy or home therapy. 2. Continue working on all exercises taught to you in the hospital. Your goals should be to increase bending of your knee to 90 degrees and beyond and to fully straighten your knee. B. Your therapist will notify you when you are able to progress from a walker to a cane. C. Wear TEDS as much as possible.~ They may be removed at night for laundering. D. Do not place a pillow behind your knee when resting. A pillow at your ankle is okay. E. Ice your knee 15-20 minutes every 2-3 hours and elevate it above the level of your heart. F. You may shower on the fourth day after surgery using regular soap and water. Do not submerge until the wound is completely healed (approximately 2 weeks ). Until the fourth day after surgery, cover the incision/bandage with a bag or plastic wrap. G. Anyone who is touching your surgical incision area should wash their hands and wear gloves. H. Keep your incision covered with gauze pads under the LOBO hose until it is dry. I. You will have a Silverlon dressing on her left knee incision. Keep this intact at all times. You may shower with the dressing on. It typically stays on for about 7 days. If it falls off and her incision is clean and dry you may cover with a gauze pad or keep open to air. VERY IMPORTANT TO READ AND REVIEW A. YOU WILL BE GIVEN AN ORDER AT DISCHARGE FOR PT/INR (BLOOD WORK). PLEASE HAVE THIS DONE INSTRUCTED. PLEASE CALL OUR OFFICE AFTER YOUR BLOODWORK IS COMPLETE SO WE CAN TRACK YOUR RESULTS. IF YOU ARE GOING TO OUTPATIENT PHYSICAL THERAPY, YOU WILL NEED TO GO TO OUTPATIENT TESTING TO HAVE IT DRAWN. B. There are a few signs you need to watch for after you are home. Call [facility] if you notice any of the followin. Increased severe knee pain. Some pain is expected especially when you exercise. 2. Increased swelling in your leg or knee; pain or swelling of the calf muscle in either lower leg. 3. Any fluid drainage from the incision. 4. Shortness of breath or chest pain. 5. Numbness and tingling in the surgical extremity C. Please call [facility] at if you have any concerns or questions about your operation or recovery. The doctor or his nurse will return your call promptly. D. Do not have any elective dental work or other elective procedures done for 6 weeks after your knee replacement. When you have any invasive procedure (dental cleaning, extraction, colonoscopy etc) performed, you will need to take antibiotics to prevent infection from developing in your artificial joint. Tell your other health care providers you have an artificial joint. My office will supply you with further information and the antibiotics. Call your doctor if: * Temperature above 101 degrees F. * Pain not relieved by pain medicine ordered. * Increased drainage or redness from incision. * Notify your doctor with any questions or concerns. Follow-up Visit: You will follow-up with Dr. Jasso 10-14 days after surgery. The office number is . * You have follow up scheduled with Dr. Jasso on September 18, 2017 11:45 AM. Please call [phone] if you need to change the appointment. Current Hospital Diet Patient's current hospital diet: Diabetes Type 2 Diet Discharge Diet Recommended Diet: Regular Diet Procedures Procedures Performed: Left total knee arthroplasty Pending Studies Studies pending at discharge: no Laboratory Results Hemoglobin A1c Test 08/11/17 11:00 Range/Units Estimated Average Glucose 128 mg/dl Hemoglobin A1c 6.1 H 4.5-5.6 % Medical Emergencies . Who to Call and When: Medical Emergencies: If at any time you feel your situation is an emergency, please call 911 immediately. . Non-Emergent Contact Non-Emergency issues call your: Surgeon Call Non-Emergent contact if: temperature is above 101.5, your pain is not controlled, your pain is worsening, your pain is concerning you, wound has increased drainage, wound has increased redness, wound has increased pain, you have any medication questions . "Provider Documentation" section prepared by Michelle Boyd. . VTE Core Measure Inpt VTE Proph given/why not?: Enoxaparin (Lovenox)SQ (30 mg SQ BID x 28 days) , Lazarus Mtz, SCD's [place] Drug Monitoring Program Search Results: patient reviewed within database, no issues identified
[2017-09-07 11:05] VITALS: BP 133/79; PULSE 83; TEMP 36.7; O2SAT 94
[2017-09-07] MEDS ORDERED: LANTUS PER UNIT CHARGE SQ ONE (17:45)
== END 2017-09-07 12:30 | disposition home health service (06) | DRG 470 ==
LOC: C.ACU 05:03 → C.3E 06:00 → ENRESERV 10:31
PROVIDERS: ADMIT Physical Medicine & Rehabilitation Sports Medicine; ATTEND Physical Medicine & Rehabilitation Sports Medicine
PROC: 0SRD0J9 Replacement of Left Knee Joint with Synthetic Substitute, Cemented, Open Approach (ICD-10-PCS; principal; 2017-09-05 07:00)
DX: M17.12 Unilateral primary osteoarthritis, left knee (principal); Z68.41 Body mass index [BMI] 40.0-44.9, adult; M25.462 Effusion, left knee; D72.829 Elevated white blood cell count, unspecified; T38.0X5A Adverse effect of glucocorticoids and synthetic analogues, initial encounter; J45.909 Unspecified asthma, uncomplicated; I10 Essential (primary) hypertension; E11.9 Type 2 diabetes mellitus without complications; E78.5 Hyperlipidemia, unspecified; K21.9 Gastro-esophageal reflux disease without esophagitis; I25.10 Atherosclerotic heart disease of native coronary artery without angina pectoris; G47.33 Obstructive sleep apnea (adult) (pediatric); E66.9 Obesity, unspecified; Z96.651 Presence of right artificial knee joint; Z99.89 Dependence on other enabling machines and devices; Z87.891 Personal history of nicotine dependence; Z79.82 Long term (current) use of aspirin; Z79.51 Long term (current) use of inhaled steroids; Z79.84 Long term (current) use of oral hypoglycemic drugs; Z79.899 Other long term (current) drug therapy